=== PATIENT | male | born 1980 | race Hispanic/Latino ===

== ENCOUNTER 2020-03-08 18:48 | Inpatient (IN) | payer OTHER ==
[~2020-03-08] VITALS: Ht 177.8 cm; Wt 104.3 kg
[2020-03-08] MEDS ORDERED: PANTOPRAZOLE 40 MG 10ML VIAL IV NR (18:58)
[2020-03-08] MEDS ORDERED: SODIUM CHLORIDE 0.9% 1000ML 1,000 ML IV STA (18:58)
[2020-03-08] MEDS ORDERED: MORPHINE SULFATE INJ 4 MG/ML INJ 1ML IV PRN (19:00)
[2020-03-08] MEDS ORDERED: ONDANSETRON HCL INJ 2MG/ML 2ML 2 MG/ML VIAL IV NR (19:00)
[2020-03-08] MEDS ORDERED: KETOROLAC TROMETHAMINE 30 MG/ML VIAL IV NR (19:00)
[2020-03-08] MEDS ORDERED: PIPER-TAZ 3.375 GM 50 ML IV NR (19:32)
[2020-03-08] MEDS ORDERED: ACETAMINOPHEN 325 MG TAB PO NR ×2 (19:45)
[2020-03-08 20:03] LABS: BASOPHILS % 0.2 % (0.0-1.0); EOSINOPHILS # (AUTO) 0.1 (0.0-0.4); EOSINOPHILS % 0.9 % (0.0-6.0); HEMOGLOBIN 14.3 g/dL (14.0-18.0); LYMPHOCYTES # (AUTO) 0.6 (1.0-3.2); LYMPHOCYTES % 4.2 % (18.0-39.1); MEAN CORPUSCULAR HEMOGLOBIN 28.9 pg (28-32); MONOCYTES # (AUTO) 1.1 (0.2-0.8); NEUTROPHILS # (AUTO) 11.6 (2.1-6.9); NEUTROPHILS % 86.1 % (38.7-80.0); PLATELET COUNT 317 x10e3/uL (140-360); RED BLOOD COUNT 4.94 x10e6/uL (4.3-5.7); RED CELL DISTRIBUTION WIDTH 12.1 % (11.7-14.4)
[2020-03-08 20:12] LABS: CLARITY,URINE SL CLOUDY (CLEAR); COLOR,URINE AMBER (YELLOW); KETONES,URINE 2+ (NEGATIVE); LEUKOCYTE ESTERASE ,URINE TRACE (NEGATIVE); NITRITE,URINE NEGATIVE (NEGATIVE); PROTEIN,URINE DIPSTICK 1+ (NEGATIVE)
[2020-03-08 20:13] LABS: AMPHETAMINES SCREEN,URINE POSITIVE (NEGATIVE); BENZODIAZEPINES SCREEN,URINE NEGATIVE (NEGATIVE); BILIRUBIN,URINE 1+ (NEGATIVE); PHENCYCLIDINE SCREEN,URINE NEGATIVE (NEGATIVE); URINE UROBILINOGEN 0.2 mg/dL (0.2 - 1)
[2020-03-08 20:21] LABS: ALANINE AMINOTRANSFERASE 23 IU/L (0-55); ALBUMIN 3.3 g/dL (3.5-5.0); ALBUMIN/GLOBULIN RATIO 0.7 (0.8-2.0); ALKALINE PHOSPHATASE 77 IU/L (40-150); ANION GAP 18.9 mmol/L (8-16); BLOOD UREA NITROGEN 15 mg/dL (7-26); BUN/CREATININE RATIO 17 (6-25); CALCIUM 9.4 mg/dL (8.4-10.2); CARBON DIOXIDE 22 mmol/L (22-29); CHLORIDE 98 mmol/L (98-107); CREATINE KINASE 61 IU/L (30-200); CREATININE, SERUM 0.89 mg/dL (0.72-1.25); EST GLOMERULAR FILTRATION RATE > 60 ML/MIN (60-); GLUCOSE 140 mg/dL (74-118); POTASSIUM 3.9 mmol/L (3.5-5.1); SODIUM 135 mmol/L (136-145)
[2020-03-08 20:25] LABS: BACTERIA,URINE MODERATE /HPF; CALCIUM OXALATE CRYSTALS,UR MODERATE (FEW); EPITHELIAL CELLS,URINE FEW /LPF; MUCUS,URINE FEW (RARE)
[2020-03-08] MEDS ORDERED: SODIUM CHLORIDE 0.9% 50ML 50 ML ONE (20:39)
[2020-03-08] MEDS ORDERED: IOPAMIDOL 370 MG/ML 200 ML INFUS..BTL INJ ONE (20:40)
--- NOTE | 2020-03-08 20:43 | Emergency Department Note ---
History of Present Illnes History of Present Illness Chief Complaint: Abdominal Complaints History of Present Illness This is a 39 year old male arrives to the ED with complaints of abdominal pain, patient states he was told he had diverticulitis by his primary care doctor and was started on Cipro Flagyl but his symptoms are worsening and he is now having fevers.. Historian: Patient Arrival Mode: Car Onset (how long ago): day(s) Radiation: Reports non-radiation Severity: mild, moderate Duration (how long): day(s) Timing of current episode: constant Progression: worsening Chronicity: new Relieving factors: none Past Medical/Family History Physician Review I have reviewed the patient's past medical and family history. Any updates have been documented here. Past Medical History Recent Fever: Yes Clinical Suspicion of Infectio: Yes New/Unexplained Change in Ment: No Past Medical History: Hypertension, Hyperlipedemia Past Surgical History: None Social History Smoking Cessation: Current every day smoker Counseling Performed: Yes Alcohol Use: Occasional Any Illegal Drug Use: No Physically hurt or threatened: No Review of Systems Review of Systems Constitutional: Reports no symptoms, Reports as per HPI, Reports fever, Reports malaise, Reports weakness EENTM: Reports no symptoms Cardiovascular: Reports no symptoms Respiratory: Reports no symptoms Gastrointestinal: Reports as per HPI, Reports abdominal pain Genitourinary: Reports no symptoms Musculoskeletal: Reports no symptoms Integumentary: Reports no symptoms Neurological: Reports no symptoms Psychological: Reports no symptoms Endocrine: Reports no symptoms Hematological/Lymphatic: Reports no symptoms Physical Exam Related Data Allergies: Coded Allergies: No Known Allergies (Unverified , 03/08/20) Triage Vital Signs Vital Signs Date Time Temp Pulse Resp B/P (MAP) Pulse Ox O2 Delivery O2 Flow Rate FiO2 03/08/20 19:33 103.1 116 17 162/104 100 Room Air Vital signs reviewed: Yes Physical Exam CONSTITUTIONAL Constitutional: Present well-developed, Present well-nourished HENT HENT: Present normocephalic, Present atraumatic, Present oropharynx clear/moist, Present nose normal HENT L/R: Present left ext ear normal, Present right ext ear normal EYES Eyes: Reports PERRL, Reports conjunctivae normal NECK Neck: Present ROM normal PULMONARY Pulmonary: Present effort normal, Present breath sounds normal CARDIOVASCULAR Cardiovascular: Present heart sounds normal, Present capillary refill normal, Present normal rate, Present tachycardia GASTROINTESTINAL Abdominal: Present soft, Present bowel sounds normal, Present distension, Present tender GENITOURINARY Genitourinary: Present exam deferred SKIN Skin: Present warm, Present dry MUSCULOSKELETAL Musculoskeletal: Present ROM normal NEUROLOGICAL Neurological: Present alert, Present oriented x 3, Present no gross motor or sensory deficits PSYCHOLOGICAL Psychological: Present mood/affect normal, Present judgement normal Results Laboratory Result Diagram: 03/08/20192403/08/201924 Laboratory Laboratory Tests Test 03/08/20 20:02 03/08/20 19:25 White Blood Count 13.51 x10e3/uL (4.8-10.8) Red Blood Count 4.94 x10e6/uL (4.3-5.7) Hemoglobin 14.3 g/dL (14.0-18.0) Hematocrit 42.0 % (38.2-49.6) Mean Corpuscular Volume 85.0 fL (81-99) Mean Corpuscular Hemoglobin 28.9 pg (28-32) Mean Corpuscular Hemoglobin Concent 34.0 g/dL (31-35) Red Cell Distribution Width 12.1 % (11.7-14.4) Platelet Count 317 x10e3/uL (140-360) Neutrophils (%) (Auto) 86.1 % (38.7-80.0) Lymphocytes (%) (Auto) 4.2 % (18.0-39.1) Monocytes (%) (Auto) 8.0 % (4.4-11.3) Eosinophils (%) (Auto) 0.9 % (0.0-6.0) Basophils (%) (Auto) 0.2 % (0.0-1.0) Neutrophils # (Auto) 11.6 (2.1-6.9) Lymphocytes # (Auto) 0.6 (1.0-3.2) Monocytes # (Auto) 1.1 (0.2-0.8) Eosinophils # (Auto) 0.1 (0.0-0.4) Basophils # (Auto) 0.0 (0.0-0.1) Absolute Immature Granulocyte (auto 0.08 x10e3/uL (0-0.1) Urine Color Clara (YELLOW) Urine Clarity Sl cloudy (CLEAR) Urine pH 5.5 (5 - 7) Urine Specific [place] >=1.030 (1.010-1.025) Urine Protein 1+ (NEGATIVE) Urine Glucose (UA) Negative (NEGATIVE) Urine Ketones 2+ (NEGATIVE) Urine Blood Trace (NEGATIVE) Urine Nitrite Negative (NEGATIVE) Urine Bilirubin 1+ (NEGATIVE) Urine Urobilinogen 0.2 mg/dL (0.2 - 1) Urine Leukocyte Esterase Trace (NEGATIVE) Urine RBC 6-10 /HPF (0-5) Urine WBC 6-10 /HPF (0-5) Urine Epithelial Cells Few /LPF (NONE) Urine Calcium Oxalate Crystals Moderate (FEW) Urine Bacteria Moderate /HPF (NONE) Urine Fine Granular Casts 1-5 (0) Urine Coarse Granular Casts 1-5 (0) Urine Mucus Few (RARE) Sodium Level 135 mmol/L (136-145) Potassium Level 3.9 mmol/L (3.5-5.1) Chloride Level 98 mmol/L (98-107) Carbon Dioxide Level 22 mmol/L (22-29) Anion Gap 18.9 mmol/L (8-16) Blood Urea Nitrogen 15 mg/dL (7-26) Creatinine 0.89 mg/dL (0.72-1.25) Estimat Glomerular Filtration Rate > 60 ML/MIN (60-) BUN/Creatinine Ratio 17 (6-25) Glucose Level 140 mg/dL (74-118) Lactic Acid Level 1.6 mmol/L (0.5-2.0) Calcium Level 9.4 mg/dL (8.4-10.2) Total Bilirubin 0.7 mg/dL (0.2-1.2) Aspartate Amino Transf (AST/SGOT) 19 IU/L (5-34) Alanine Aminotransferase (ALT/SGPT) 23 IU/L (0-55) Alkaline Phosphatase 77 IU/L (40-150) Creatine Kinase 61 IU/L (30-200) Creatine Kinase MB 0.60 ng/mL (0-5.0) Troponin I < 0.001 ng/mL (0-0.300) Total Protein 7.8 g/dL (6.5-8.1) Albumin 3.3 g/dL (3.5-5.0) Globulin 4.5 g/dL (2.3-3.5) Albumin/Globulin Ratio 0.7 (0.8-2.0) Lipase 16 U/L (8-78) Urine Opiates Screen Negative (NEGATIVE) Urine Methadone Screen Negative (NEGATIVE) Urine Barbiturates Screen Negative (NEGATIVE) Urine Phencyclidine Screen Negative (NEGATIVE) Urine Amphetamines Screen Positive (NEGATIVE) Urine Methamphetamines Screen Negative (NEGATIVE) Urine Benzodiazepines Screen Negative (NEGATIVE) Urine Cocaine Screen Negative (NEGATIVE) Urine Cannabinoids Screen Negative (NEGATIVE) Imaging Imaging results reviewed: Yes Impressions IMPRESSION: Perforated sigmoid diverticulitis with small volume pneumoperitoneum and an 8.3 cm air-fluid containing lower mesenteric abscess. This was discussed with Dr. Mcdonough by Dr. Ayers at 9:47 PM on 03/08/2020 via telephone. Eventually colonoscopy will be necessary to exclude underlying malignancy given the presence of sigmoid wall thickening.. Hepatic steatosis. Suspect gallbladder sludge. Signed by: Elliot Ayers DO on 03/08/2020 9:52 PM Assessment & Plan Medical Decision Making MDM 39-year-old male arrives to the ED with fever abdominal pain. Concerns of severe sepsis noted at 2150 Lactic acid 1.6 ni indications for repeat Patient empirically covered with Zosyn the setting of possible intra-abdominal infection. Blood cultures and lactic acid drawn. CT findings concerning for intra-abdominal perforated abscess of pneumoperitoneum. Patient kept nothing by mouth, further antibiotics added at recommendation of general surgeon. Dr. Senior informed and patient admitted to IMCU for closer monitoring. Patient is hemodynamically stable at time of admi ssion requires no pressor support. Patient continued on maintenance fluids with further interventions to be completed by general surgery. Assessment & Plan Final Impression: (1) Pneumoperitoneum (2) Perforation and abscess of large intestine concurrent with and due to diverticulitis Depart Disposition: ADMITTED Last Vital Signs Date Time Temp Pulse Resp B/P (MAP) Pulse Ox O2 Delivery O2 Flow Rate FiO2 03/08/20 19:59 102 24 153/102 99 Room Air 03/08/20 19:33 103.1 Medications in the ED Sodium Chloride 1,000 ml @ 0 mls/hr Q0M STAT IV Last administered on 03/08/20at 19:58; Admin Dose 999 MLS/HR; Start 03/08/20 at 18:58; Stop 03/08/20 at 18:59 Pantoprazole Sodium 40 mg NOW IV Last administered on 03/08/20at 19:58; Admin Dose 40 MG; Start 03/08/20 at 18:58; Stop 8/23/20 at 20:00 Morphine Sulfate 4 mg ONCE PRN IV SEVERE PAIN (7-10) Last administered on 03/08/20at 19:58; Admin Dose 4 MG; Start 03/08/20 at 19:00; Stop 03/15/20 at 18:59 Ondansetron HCl 4 mg NOW IV Last administered on 03/08/20at 19:58; Admin Dose 4 MG; Start 03/08/20 at 19:00; Stop 03/08/20 at 20:59 Ketorolac Tromethamine 30 mg ONCE IV Last administered on 03/08/20at 19:58; Admin Dose 30 MG; Start 03/08/20 at 19:00; Stop 03/08/20 at 20:59 Acetaminophen 650 mg ONCE PO ; Start 03/08/20 at 19:45; Stop 03/08/20 at 19:40; Status DC Piperacillin Sod/ Tazobactam Sod 50 ml @ 50 mls/hr NOW IV Last administered on 03/08/20at 19:58; Admin Dose 50 MLS/HR; Start 03/08/20 at 19:32; Stop 03/08/20 at 20:59 Acetaminophen 975 mg ONCE PO Last administered on 03/08/20at 19:58; Admin Dose 975 MG; Start 03/08/20 at 19:45; Stop 03/08/20 at 20:59 Sodium Chloride 50 ml @ ud STK-MED ONCE .ROUTE ; Start 03/08/20 at 20:39; Stop 03/08/20 at 20:33; Status DC Iopamidol 74,000 mg STK-MED ONCE INJ ; Start 03/08/20 at 20:40; Stop 03/08/20 at 20:33; Status DC CONSUELO MCDONOUGH, Mar 08, 2020 20:44
--- NOTE | 2020-03-08 21:55 | Diagnostic Imaging Report ---
EXAM: CT Abdomen and Pelvis WITH contrast INDICATION: Diarrhea, abdominal pain, fever COMPARISON: None. TECHNIQUE: Abdomen and pelvis were scanned utilizing a multidetector helical scanner from the lung base to the pubic symphysis after administration of IV contrast. Coronal and sagittal reformations were obtained. Routine protocol was performed. Scan was performed when during portal venous phase. IV CONTRAST: 100 mL of Isovue 370 ORAL CONTRAST: None COMPLICATIONS: None RADIATION DOSE: Total DLP: 736 mGy*cm Estimated effective dose: (DLP x 0.015 x size factor) mSv CTDIvol has been reviewed. It is below the limits set by the Radiation Protocol Committee (RPC). Dose modulation, iterative reconstruction, and/or weight based adjustment of the mA/kV was utilized to reduce the radiation dose to as low as reasonably achievable. FINDINGS: LINES and TUBES: None. LOWER THORAX: Unremarkable HEPATOBILIARY: Hypodense liver. No focal hepatic lesions. No biliary ductal dilation. GALLBLADDER: Slightly hyperdense layering in the gallbladder fundus.. No wall thickening. SPLEEN: No splenomegaly. PANCREAS: No focal masses or ductal dilatation. ADRENALS: No adrenal nodules KIDNEYS/URETERS: Kidneys enhance symmetrically. No hydronephrosis. No cystic or solid mass lesions. No stones. GI TRACT: Sigmoid colonic wall thickening and perisigmoid fat stranding, and the presence of numerous diverticuli. Colonic diverticulosis, worst in the sigmoid colon. Normal appendix. No evidence of obstruction. PELVIC ORGANS/BLADDER: Unremarkable. LYMPH NODES: No lymphadenopathy. VESSELS: Unremarkable. PERITONEUM / RETROPERITONEUM: Trace pneumoperitoneum An 8.3 cm irregular air and fluid containing loculation within the distal mesentery beneath small bowel loops extends from the distal sigmoid colon. No free air or fluid. BONES: Unremarkable. SOFT TISSUES: Unremarkable. IMPRESSION: Perforated sigmoid diverticulitis with small volume pneumoperitoneum and an 8.3 cm air-fluid containing lower mesenteric abscess. This was discussed with Dr. Michaud by Dr. Ayers at 9:47 PM on 03/08/2020 via telephone. Eventually colonoscopy will be necessary to exclude underlying malignancy given the presence of sigmoid wall thickening.. Hepatic steatosis. Suspect gallbladder sludge. Signed by: Elliot Ayers DO on 03/08/2020 9:52 PM
[2020-03-08] MEDS ORDERED: LEVOFLOXACIN 500MG/D5W 100ML 100 ML IV STA (22:16)
[2020-03-08] MEDS ORDERED: METRONIDAZOLE 500MG/NS 100ML 100 ML IV STA (22:16)
[2020-03-08] MEDS ORDERED: CEFTRIAXONE SOD 2 GM/NS 100 ML 100 ML IV SCH (22:30)
[2020-03-08] MEDS ORDERED: ONDANSETRON HCL INJ 2MG/ML 2ML 2 MG/ML VIAL IV PRN (22:30)
[2020-03-08] MEDS ORDERED: MORPHINE SULFATE 2 MG/ML SYR 1ML IV PRN (22:30)
[2020-03-08] MEDS ORDERED: HYDROMORPHONE 1MG/1ML INJ IV PRN (22:30)
[2020-03-08] MEDS ORDERED: D5.45%NS/KCL 20MEQ 1,000 ML IV ONE (22:30)
--- OUTSIDE RECORDS SUMMARY | 2020-03-08 22:31 | XMS REPORT | Continuity of Care Document ---
Author Author [facility] t Organization [facility] Address [address] [place] [address] Dr. Suarez [address] [place] [id number] Phone Unavailable Care Team Providers Care Call Center Receptionist Name Role Phone Sridevi MCDONOUGH Attphysridevi Unavailable Problems This patient has no known problems. Allergies, Adverse Reactions, Alerts This patient has no known allergies or adverse reactions. Medications This patient has no known medications. Procedures This patient has no known procedures. Results Test Description Test Time Test Comments Results Result Comments Source CT ABDOMEN/PELVIS W 2020-03-08 21:44:00 [place] [address] Patient Name: DORI CABEZAS MR #: [id number] : 1980 Age/Sex: 39/M Req #: [id number] Adm Physician: Ordered by: CONSUELO MCDONOUGH DO Report #: [id number] Location: ER Room/Bed: Procedure: [id number] CT/CT ABDOMEN/PELVIS W Exam Date: Exam Time: REPORT STATUS: Signed EXAM: CT Abdomen and Pelvis WITH contrast INDICATION: Diarrhea, abdominal pain, fever COMPARISON: None. TECHNIQUE: Abdomen and pelvis were scanned utilizing a multidetector helical scanner from the lung base to the pubic symphysis after administration of IV contrast. Coronal and sagittal reformations were obtained. Routine protocol was performed. Scan was performed when during portal venous phase. IV CONTRAST: 100 mL of Isovue 370 ORAL CONTRAST: None COMPLICATIONS: None RADIATION DOSE: Total DLP: 736 mGy*cm Estimated effective dose: (DLP x 0.015 x size factor) mSv CTDIvol has b een reviewed. It is below the limits set by the Radiation Protocol Committee (RPC). Dose modulation, iterative reconstruction, and/or weight based adjustment of the mA/kV was utilized to reduce the radiation dose to as low as reasonably achievable. FINDINGS: LINES and TUBES: None. LOWER THORAX: Unremarkable HEPATOBILIARY: Hypodense liver. No focal hepatic lesions. No biliary ductal dilation. GALLBLADDER: Slightly hyperdense layering in the gallbladder fundus.. No wall thickening. SPLEEN: No splenomegaly. PANCREAS: No focal masses or ductal dilatation. ADRENALS: No adrenal nodules KIDNEYS/URETERS: Kidneys enhance symmetrically. No hydronephrosis. No cystic or solid mass lesions. No stones. GI TRACT: Sigmoid colonic wall thickening and perisigmoid fat stranding, and the presence of numerous diverticuli. Colonic diverticulosis, worst in the sigmoid colon. Normal appendix. No evidence of obstruction. PELVIC ORGANS/BLADDER: Unremarkable. LYMPH NODES: No lymphadenopathy. VESSELS: Unremarkable. PERITONEUM / RETROPERITONEUM: Trace pneumoperitoneum An 8.3 cm irregular air and fluid containing loculation within the distal mesentery beneath small bowel loops extends from the distal sigmoid colon. No free air or fluid. BONES: Unremarkable. SOFT TISSUES: Unremarkable. IMPRESSION: Perforated sigmoid diverticulitis with small volume pneumoperitoneum and an 8.3 cm air-fluid containing lower mesenteric abscess. This was discussed with Dr. Mcdonough by Dr. Ayers at 9:47 PM on 03/08/2020 via telephone. Eventually colonoscopy will be necessary to exclude underlying malignancy given the presence of sigmoid wall thickening.. Hepatic steatosis. Suspect gallbladder sludge. Signed by: Elliot Ayers DO on 03/08/2020 9:52 PM Dictated By: ELLIOT AYERS DO 49 Transcribed By: ZAYRA on 03/08/202151 COPY TO: CONSUELO MCDONOUGH DO
[2020-03-08] MEDS ORDERED: PANTOPRAZOLE 40 MG 10ML VIAL IV SCH (22:45)
[2020-03-08] MEDS ORDERED: SODIUM CHLORIDE 0.9% 1000ML 1,000 ML ONE (23:02)
[2020-03-08] MEDS: SODIUM CHLORIDE 0.9% 1000ML 1,000 ML IV SCH (23:11)
[2020-03-09] VITALS (7 sets, daily range): BP systolic 122–146; BP diastolic 70–98
--- NOTE | 2020-03-09 00:10 | NUR ---
PT ARRIVED ON THE FLOOR VIA STRETCHER FROM ER, REPORT RECEIVED, PT ALERT AND ORIENTED, PT SPEAKS KITTITIAN BUT UNDERSTANDS MOST UZBEK, IV INTACT TO RIGHT AC, 20 G, TELE AT BEDSIDE, NO PAIN NOTED OR DISTRESS AT THIS TIME. ORIENTED TO ROOM AND CALL SYSTEM.
[2020-03-09] MEDS ORDERED: HYDRALAZINE HCL 20 MG/ML VIAL IV PRN (00:30)
[2020-03-09] MEDS ORDERED: HYDROMORPHONE 1MG/1ML INJ IV PRN (00:30)
[2020-03-09] MEDS ORDERED: ACETAMINOPHEN 650 MG SUPP PR PRN (00:30)
[2020-03-09] MEDS ORDERED: MELATONIN 5 MG TABLET PO PRN (00:30)
[2020-03-09] MEDS ORDERED: CEFTRIAXONE SOD 1 GM VIAL ONE (02:24)
--- NOTE | 2020-03-09 04:00 | NUR ---
VS WNL, PT IN BED, EASILY AWAKENED, NO DISTRESS NOTED, CALL LIGHT IN REACH, WILL CONTINUE TO MONITOR.
[2020-03-09] MEDS: SODIUM CHLORIDE 0.9% 1000ML 1,000 ML IV SCH ×3 (05:25→19:52)
[2020-03-09 06:10] LABS: BASOPHILS % 0.2 % (0.0-1.0); EOSINOPHILS % 0.2 % (0.0-6.0); HEMATOCRIT 35.3 % (38.2-49.6); HEMOGLOBIN 11.7 g/dL (14.0-18.0); LYMPHOCYTES # (AUTO) 1.3 (1.0-3.2); LYMPHOCYTES % 10.8 % (18.0-39.1); MEAN CORPUSCULAR HEMOGLOBIN 28.5 pg (28-32); MEAN CORPUSCULAR HGB CONC 33.1 g/dL (31-35); MEAN CORPUSCULAR VOLUME 86.1 fL (81-99); MONOCYTES # (AUTO) 1.1 (0.2-0.8); MONOCYTES % 9.2 % (4.4-11.3); NEUTROPHILS # (AUTO) 9.5 (2.1-6.9); PLATELET COUNT 235 x10e3/uL (140-360); RED CELL DISTRIBUTION WIDTH 12.1 % (11.7-14.4)
[2020-03-09 06:29] LABS: BLOOD UREA NITROGEN 13 mg/dL (7-26); BUN/CREATININE RATIO 16 (6-25); CALCIUM 8.1 mg/dL (8.4-10.2); CARBON DIOXIDE 23 mmol/L (22-29); CHLORIDE 104 mmol/L (98-107); CREATININE, SERUM 0.79 mg/dL (0.72-1.25); EST GLOMERULAR FILTRATION RATE > 60 ML/MIN (60-); GLUCOSE 126 mg/dL (74-118); SODIUM 136 mmol/L (136-145)
[2020-03-09] MEDS ORDERED: METRONIDAZOLE 500MG/NS 100ML 100 ML IV ONE (10:20)
[2020-03-09] MEDS ORDERED: PIPER-TAZ 3.375 GM 50 ML ONE (10:21)
--- NOTE | 2020-03-09 10:37 | Consultation ---
DATE OF CONSULTATION: 03/09/2020 REASON FOR CONSULTATION: Perforated diverticulitis. HISTORY OF PRESENT ILLNESS: The patient is a very pleasant 39-year-old male who has a long-standing history of recurrent attacks of diverticulitis, multiple, none of which have required hospitalization. The patient developed since Monday lower left-sided abdominal pain which progressively got worse until yesterday at which time he could not tolerate any longer the pain, reason for which he came to the emergency room. In the emergency room, the patient underwent a CT scan of the abdomen and pelvis that revealed perforated diverticulitis with a mesenteric interloop type of fluid collection and multiple pockets of free air. The patient's white count is 16 ,000 , Vital signs are stable PAST MEDICAL HISTORY: Significant for hypertension and high cholesterol. PREVIOUS SURGERIES: Include traumatic injury to the left index finger with repair. ALLERGIES: HE HAS NO KNOWN ALLERGIES. SOCIAL HISTORY: He smokes three cigars a day, but does not drink at to any excess. 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 FAMILY HISTORY : nON CONTIB UTORY REVIEW OF SYSTEMS: Significant for what has already been stated. PHYSICAL EXAMINATION: GENERAL: Reveals a 39-year-old male who complains of abdominal pain. At this point, he is afebrile with stable vital signs. HEAD, EAR, NOSE, and THROAT: Unremarkable. LUNGS: Clear. HEART: Reveals regular sinus rhythm. ABDOMEN: Reveals diffuse tenderness with rebound on deep palpation. The tenderness is more shiv in the left lower quadrant. EXTREMITIES: Reveal no clubbing, cyanosis, or edema. LABORATORY DATA: Labs have been discussed. Normal electrolytes. CT scan has already been discussed. ASSESSMENT/PLAN: Perforated diverticulitis with peritonitis, multiple small pockets of free air. He has had previous attacks in the past. The plan is to proceed with emergent exploratory laparotomy and colostomy. He understands the reasons for the surgery. The potential risks and benefits have been discussed. He agrees to colostomy placement and he understands that the colostomy can be closed later on. All questions have been asked in great detail. MD VANNESA Hernandez/NIKHIL /[id number] TAB
[2020-03-09] MEDS ORDERED: HYDROMORPHONE 2MG/ML 2 MG/ML ML ONE (12:56)
[2020-03-09] MEDS ORDERED: HYDROGEN PEROXIDE 120 ML BTL ONE (14:07)
--- NOTE | 2020-03-09 14:28 | NUR ---
infectious disease consultation Patient seen and examined chart reviewed the events noted Reason for consultation is Perforated diverticulitis. HISTORY OF PRESENT ILLNESS: The patient is a very pleasant 39-year-old male who has a long-standing history of recurrent attacks of diverticulitis, multiple, none of which have required hospitalization. the patient comes in the hospital complaining of abdominal pain apparently it was started a few days ago The patient developed since Monday lower left-sided abdominal pain which progressively got worse until yesterday at which time he could not tolerate any longer the pain, reason for which he came to the emergency room. In the emergency room, the patient underwent a CT scan of the abdomen and pelvis that revealed perforated diverticulitis with a mesenteric interloop type of fluid collection and multiple pockets of free air including the abdominal wall. The patient's white count is 16,000. Vital signs are stable. Patient is being admitted surgery and consulted is going for surgery I was asked to see him to make a recommendation terms of antibiotic the patient is currently complaining of abdominal pain PAST MEDICAL HISTORY: Significant for hypertension and high cholesterol. PREVIOUS SURGERIES: Include traumatic injury to the left index finger with repair. ALLERGIES: HE HAS NO KNOWN ALLERGIES. SOCIAL HISTORY: He smokes three cigars a day, but does not drink at to any excess. 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 FAMILY HISTORY: noncontributory . REVIEW OF SYSTEMS: Significant for what has already been stated.otherwise 14 points within normal limit PHYSICAL EXAMINATION: GENERAL: Reveals a 39-year-old male who complains of abdominal pain. At this point, he is afebrile with stable vital signs. HEAD, EAR, NOSE, and THROAT: Unremarkable. normocephalic LUNGS: Clear. bilateral HEART: Reveals regular sinus rhythm. S1-S2 there is no S3-S4 or murmur ABDOMEN: Reveals diffuse tenderness with rebound on deep palpation. The tenderness is more shiv in the left lower quadrant. EXTREMITIES: Reveal no clubbing, cyanosis, or edema. neuro nonfocal LABORATORY DATA: Labs have been discussed. Normal electrolytes. CT scan has already been discussed. Peritonitis. Ruptured diverticular disease diverticulitis. Surgery is planned for him today agree with surgery recommendations Zosyn 3.375 IV every 8 recheck CBC restrictive panel
[2020-03-09] MEDS ORDERED: FENTANYL CITRATE/PF 100MCG/2 ML INJ ONE (15:22)
[2020-03-09] MEDS ORDERED: MIDAZOLAM HCL 2 MG/2 ML VIAL ONE (15:22)
[2020-03-09] MEDS: SODIUM CHLORIDE 0.9% 250ML IRRIG IR SCH ×3 (15:45→23:57)
[2020-03-09] MEDS ORDERED: NALOXONE HCL INJ 0.4 MG/ML AMP IV PRN (15:45)
[2020-03-09] MEDS: HYDROMORPHONE 0.2MG/ML-SOD CHL 30ML PCA SYRINGE IV PRN (16:05)
--- NOTE | 2020-03-09 17:00 | NUR ---
Received patient from PACU patient is awake alert and oriented x3, verbalizing needs, has NGT to left Nares, connected him to continuous low wall suction, placed on oxygen 3 liters nasal canula, has abdominal midline incision with foam dressing in place, right LOBO drain with sanguinous drainage, left LOBO drain sanguinous drainage. Geiger to gravity placed in the OR, instructed patient to use call light when needing assistance.
[2020-03-09] MEDS ORDERED: PIPER-TAZ 3.375 GM 50 ML IV SCH (18:00)
[2020-03-09] MEDS ORDERED: PROPOFOL IV EMULSION 10 MG/ML 20 ML VIAL ONE (18:20)
[2020-03-09] MEDS ORDERED: NEOSTIGMINE 1 MG/ML 10ML VIAL ONE (18:20)
[2020-03-09] MEDS ORDERED: ROCURONIUM BROMIDE 10 MG/ML 5ML VIAL IV ONE (18:20)
[2020-03-09] MEDS ORDERED: GLYCOPYRROLATE INJ 0.2 MG/ML VIAL ONE (18:20)
[2020-03-09] MEDS ORDERED: LIDOCAINE HCL 2% LOCAL INJ 5 ML SDV VIAL INJ ONE (18:20)
[2020-03-09] MEDS ORDERED: ONDANSETRON HCL INJ 2MG/ML 2ML 2 MG/ML VIAL ONE (18:20)
[2020-03-09] MEDS ORDERED: DEXAMETHASONE SOD PHOS INJ 4 MG/ML VIAL ONE (18:20)
[2020-03-09] MEDS ORDERED: SEVOFLURANE INHAL SOLN 250 ML PEN BTL ONE (18:20)
[2020-03-09] MEDS: METRONIDAZOLE 500MG/NS 100ML 100 ML IV SCH (18:35)
--- NOTE | 2020-03-09 19:26 | Operative Report ---
DATE OF PROCEDURE: SURGEON: Jose Senior MD The patient is a pleasant 39-year-old obese hypertension male, on amphetamine for weight loss, who presented with abdominal pain since the Monday prior to admission. The pain progressively got worse and he presented to [facility] on Monday night with progressive severe pain. In the emergency room, he underwent a CT scan of the abdomen that revealed multiple small pockets of air and ill-defined collection of fluid into the mesentery of the small bowel, all consistent with perforated diverticulitis. The patient was hydrated, given antibiotics, and taken to the operating room. INTRAOPERATIVE FINDINGS: The patient had a perforated sigmoid diverticulitis with generalized peritonitis, which was of the fecal type. There was fibrinous exudate throughout the small bowel and there was a distal sigmoid mass or phlegmon, which on intraoperative consultation was found to be perforated sigmoid diverticulitis rather than malignancy. Final path report is pending. There were significant inflammatory changes throughout the small bowel as previously stated with an edema of the small bowel mesentery and colon. The colon was very fatty. The actual lumen of the sigmoid colon selected for the colostomy was actually rather small compared to the amount of fat in the pericolonic plane. The intraoperative findings were precluded. Primary anastomosis and a Bakari's procedure were performed with resection of the sigmoid colon, leaving a stump that was located above the peritoneal reflection and left-sided end colostomy was then performed after mobilization of the colon. DESCRIPTION OF PROCEDURE: With the patient lying on the operating table in the supine position, after administration of general anesthesia, he was prepped and draped for exploratory laparotomy, Bakari's procedure, and anesthesia was made around the umbilicus curved to the right and the abdomen was entered. Edema was found of the subcutaneous tissue and preperitoneal fat. Upon entering the peritoneum, we heard a gush of air and then sickling pus was found. We copiously irrigated the wound at this point, extracting all of the tracheal pus and fluid and then we palpated the phlegmonous mass in the distal sigmoid colon above the peritoneal reflection. We then mobilized the left colon and sigmoid colon along the white line of Toldt and then selected the point of proximal transection in the distal left colon, the proximal point of transection of the sigmoid colon at the junction with the left colon, and then the distal point of transection was in the distal sigmoid colon above the peritoneal reflection below the mass effect the patient showed. We then took down the blood supply with a combination of the EnSeal hemostatic instrument and 0 silk for the major branches of the inferior mesenteric artery supplying the left colon and sigmoid colon. Hemostasis was absolute. After we detached the colon, we continued with the irrigation. We then ran the small bowel all the way from the terminal ileum to the ligament of Treitz and we did not find any evidence of perforation. There were interloop abscesses and pus and fibrinous exudate, all of that was removed. We then brought out the left colon as a colostomy through a colostomy site located along the rectus sheath and a cruciate incision was then made and enlarged to allow the passage of the colon. We found that the actual colon in that area had a small lumen and had significant fat. We went ahead and at this point after exteriorizing the left colon, then started closing the wound. The instrument and sponge counts were pronounced correct. We went ahead and then closed the abdominal wound with a running #1 Vicryl for the peritoneum and posterior sheath and running #1 PDS for the anterior fascia. We placed a 10 mm flat Wilner-North drain to drain the pelvis and brought it out through a stab wound inferior to the incision along the midline and secured it there with 3-0 silk. The subcutaneous tissue was copiously irrigated in each layer and then we closed the subcutaneous tissues with interrupted 2-0 chromic and the skin was closed with a combination of 2-0 silk and radha and then we isolated the incision and then the colostomy was matured by placing 4 quadrant stitches with 3-0 Vicryl in mucosa, serosa and the subcuticular plane. We had to place a couple of stitches using silk 2-0 on the medial and lateral aspects of the colostomy site because the actual colonic lumen was smaller down the excise patch of skin and I did not want to create undue tension and after we did that, we were able then to secure the 4 quadrant anchoring stitches without any excess tension on the colonic lumen. We then completed the maturation of the stoma with interrupted 3-0 Vicryl stitches incorporating the mucosa and the subcuticular plane. At this point, we then applied a 3/4 inches colostomy sterile appliance to appropriate size and connected to the wafer to the back. The patient tolerated the procedure well and was taken back to [facility] because there was no ICU available at this point, even though I requested 1, but it was not done because the ICU was full due to the COVID situation. At the end of the procedure, I informed the patient's of the intraoperative findings and she is fully aware that this is a very serious condition due to the fecal load perforation and all questions were answered. MD VANNESA Hernandez/NIKHIL /[id number]
[2020-03-09] MEDS: PIPER-TAZ 3.375 GM 50 ML IV SCH (19:52)
[2020-03-09] MEDS: PANTOPRAZOLE 40 MG 10ML VIAL IV SCH (19:52)
[2020-03-09] MEDS: KETOROLAC TROMETHAMINE 30 MG/ML VIAL IM PRN (20:09)
[2020-03-09] MEDS ORDERED: CEFTRIAXONE SOD 2 GM/NS 100 ML 100 ML IV SCH (22:30)
[2020-03-10] VITALS (8 sets, daily range): BP systolic 114–153; BP diastolic 70–86
[2020-03-10] MEDS ORDERED: ACETAMINOPHEN 1000 MG/100 ML IV PRN
[2020-03-10] MEDS: HYDROMORPHONE 0.2MG/ML-SOD CHL 30ML PCA SYRINGE IV PRN ×2 (00:19→19:12)
[2020-03-10] MEDS: METRONIDAZOLE 500MG/NS 100ML 100 ML IV SCH ×4 (00:28→18:11)
[2020-03-10] MEDS: PIPER-TAZ 3.375 GM 50 ML IV SCH ×2 (02:50→08:44)
[2020-03-10] MEDS: KETOROLAC TROMETHAMINE 30 MG/ML VIAL IM PRN (02:54)
[2020-03-10] MEDS: SODIUM CHLORIDE 0.9% 250ML IRRIG IR SCH ×6 (03:49→23:59)
--- NOTE | 2020-03-10 03:57 | Operative Report ---
DATE OF PROCEDURE: 03/09/2020 SURGEON: Jose Senior MD PREOPERATIVE DIAGNOSES: Perforated sigmoid diverticulitis with pneumoperitoneum and peritonitis, obesity, hypertension. POSTOPERATIVE DIAGNOSES: Perforated sigmoid diverticulitis with fecal peritonitis, obesity, hypertension. PROCEDURES PERFORMED: Exploratory laparotomy with peritoneal irrigation, sigmoid colon resection, and left colostomy. MARKET RESEARCH COORDINATOR: Freeman López. ESTIMATED BLOOD LOSS: Less than 250 mL. COMPLICATIONS: None. INDICATION AND FINDINGS: The patient is a pleasant 39-year-old hypertensive, obese male, admitted to the hospital with a history of a recurrent episode and bout of diverticulitis in the past. The patient started having severe pain and last Monday he got progressively worse to the point where he came to [facility]. In the emergency room, the patient was found to be febrile. Vital signs were stable. There was no hypotension. His lactic acid was 1.6, which is normal. The patient underwent CT scan of the abdomen, that revealed perforation with small pockets of air throughout the abdominal cavity. There was an ill-defined collection in the mesentery of the small bowel. Physical examination revealed diffuse tenderness mainly in the left lower quadrant with deep rebound. The patient was given intravenous antibiotics and hydrated, and then taken to the operating room for laparotomy. DICTATION ENDS HERE Jose Senior MD PJR/MODL /[id number]
--- NOTE | 2020-03-10 03:57 | History and Physical ---
CHIEF COMPLAINT: Abdominal pain. HISTORY OF PRESENT ILLNESS: A 39-year-old male with known history of diverticulitis, comes into the ED with complaints of diffuse abdominal pain that began since Monday last week. The patient reports that he was diagnosed with diverticulitis approximately 10 to 12 years ago. He has been on and off with pain. He reports having colonoscopy many years ago and told him about this diagnosis. He used to take antibiotics with much improvement. Last week, he noted to have an acute abdominal pain, radiated to more toward the left lower quadrant and then started diffusely given severe pain. He has been having just clear liquid diet at home, but no fever. Due to excruciating pain, he came into the ED for further evaluation and management. CT imaging was consistent with a perforated sigmoid diverticulitis with a pneumoperitoneum with air containing lower mesenteric abscess seen. The patient was taken to the OR by Dr. Senior and had extensive surgery. The patient is seen for followup where he is currently doing well with no issues at this time. REVIEW OF SYSTEMS: Pertinent positives; abdominal pain, nausea, decreased oral intake, vomiting. The rest of 14-point review of systems have been reviewed with the patient and are negative. ALLERGIES: NO KNOWN DRUG ALLERGIES. HOME MEDICATIONS: None. PAST MEDICAL HISTORY: Diverticulitis. PAST SURGICAL HISTORY: He reports none. FAMILY HISTORY: None. SOCIAL HISTORY: No drugs. No alcohol. He does not smoke. He is . Good social support. PHYSICAL EXAMINATION: VITAL SIGNS: Temperature is 98.7, pulse 79, respiratory rate is 12, blood pressure 120/93, pulse ox 99% on 2 L nasal cannula. GENERAL: No acute distress. Alert and oriented x3. Cooperative on examination. HEENT: Head is normocephalic, atraumatic. Eyes, pupils are equal, round, reactive to light bilaterally. Extraocular movements are intact bilaterally. Throat, no evidence of erythema or exudates in the posterior pharynx. Has poor dentition. NECK: Supple. Good range of motion. PULMONARY: Clear to auscultation bilaterally. No wheezing, no rales, no rhonchi, no crackles appreciated. CARDIOVASCULAR: Positive S1 and S2. No murmurs, rubs, or gallops appreciated. ABDOMEN: Soft, nondistended, and nontender to palpation. Bowel sounds present. MUSCULOSKELETAL: Strength is 5/5 throughout. No evidence of any muscle deficits on examination. No weakness appreciated. NEUROLOGICAL: Cranial nerves II through XII grossly intact. No evidence of any neurological deficits on exam. SKIN: Intact. Warm to touch. Good cap refill. PSYCHIATRIC: Normal affect and mood. EXTREMITIES: No edema. Good range of motion throughout. LABORATORY DATA: Show white count was 12, hemoglobin 11, hematocrit 35, and platelets of 235. Chemistry; sodium 136, potassium 4, chloride 104, bicarb 23, anion gap of 13, BUN is 13, creatinine is 0.79, glucose is 126, calcium is 8.1. Lactic acid is 0.9. LFTs within normal range. Troponins are negative. Albumin 3.3. Lipase is 16. Urinalysis noted. Urine drug screen shows positive for amphetamine. Serology; coronavirus is pending. MICROBIOLOGY: Blood cultures, no growth. Urine culture is pending. IMAGING STUDIES: CT abdomen and pelvis shows a perforated sigmoid diverticulitis with small volume hemoperitoneum with 8.37 air fluid containing . There was also some thickening of the sigmoid wall. Hepatic steatosis suspected, gallbladder sludge. IMPRESSION: 1. Perforated diverticulitis with peritonitis with underlying abscess. 2. History of diverticulitis. PLAN: At this time, the patient underwent surgery performed by Dr. Senior. with a left-sided end colostomy created. Blood cultures were collected. The patient is on broad-spectrum IV antibiotic therapy. ID is following him as well as General Surgery. Now has an NG tube intermittent wall suctioning. He is on EQUIPMENT LEAD pump for pain. He is currently n.p.o. We will initiate anticoagulation tomorrow if agreed upon by General Surgery. Initiate IV TPN tomorrow for nutrition. Discussed plan of care with nursing staff and the patient at bedside. Continue with normal saline and IV fluid hydration for now. Consultants; General Surgery and ID. MD REEMA Cantu/MODL /[id number]
[2020-03-10 04:40] LABS: BASOPHILS % 0.2 % (0.0-1.0); EOSINOPHILS % 0.1 % (0.0-6.0); HEMATOCRIT 34.2 % (38.2-49.6); HEMOGLOBIN 11.2 g/dL (14.0-18.0); LYMPHOCYTES # (AUTO) 0.9 (1.0-3.2); LYMPHOCYTES % 8.2 % (18.0-39.1); MEAN CORPUSCULAR HEMOGLOBIN 29.2 pg (28-32); MEAN CORPUSCULAR HGB CONC 32.7 g/dL (31-35); MEAN CORPUSCULAR VOLUME 89.1 fL (81-99); MONOCYTES # (AUTO) 1.1 (0.2-0.8); MONOCYTES % 10.1 % (4.4-11.3); NEUTROPHILS # (AUTO) 9.1 (2.1-6.9); NEUTROPHILS % 80.3 % (38.7-80.0); PLATELET COUNT 271 x10e3/uL (140-360); RED BLOOD COUNT 3.84 x10e6/uL (4.3-5.7); RED CELL DISTRIBUTION WIDTH 12.5 % (11.7-14.4)
[2020-03-10 05:06] LABS: ALANINE AMINOTRANSFERASE 22 IU/L (0-55); ALBUMIN/GLOBULIN RATIO 0.6 (0.8-2.0); ALKALINE PHOSPHATASE 48 IU/L (40-150); ANION GAP 13.8 mmol/L (8-16); BLOOD UREA NITROGEN 12 mg/dL (7-26); BUN/CREATININE RATIO 15 (6-25); CALCIUM 7.6 mg/dL (8.4-10.2); CARBON DIOXIDE 21 mmol/L (22-29); CHLORIDE 107 mmol/L (98-107); EST GLOMERULAR FILTRATION RATE > 60 ML/MIN (60-); GLUCOSE 148 mg/dL (74-118); POTASSIUM 3.8 mmol/L (3.5-5.1); SODIUM 138 mmol/L (136-145)
[2020-03-10] MEDS: SODIUM CHLORIDE 0.9% 1000ML 1,000 ML IV SCH ×3 (06:31→14:38)
--- NOTE | 2020-03-10 13:15 | NUR ---
infectious disease progress note March 10, 2020 Patient seen and examined chart reviewed and discussed with surgery discussed the medical team prepared the patient is feeling better he had surgery yesterday he is still having some abdominal pain prepared for his review of system otherwise suggest week his physical examination currently alert oriented vital stable currently afebrile HEENT normocephalic neck supple chest clear anteriorly heart S1-S2 abdomen soft bowel sounds are present extremities no edema skin no rash. Impression sepsis on admission peritonitis on admission perforated colon on admission obesity will put the patient on cefepime 2 g every 6 Flagyl 500 IV every 6 discontinued Zosyn and discontinue Rocephin continued IV fluid continue supportive care will follow
--- NOTE | 2020-03-10 13:15 | NUR ---
addendum to the infectious disease consultation from March 09, 2020. The patient was seen and examined chart reviewed please mention note. Palpation was discussed the case with surgery [id number] was seen before he went to surgery for the information obtained A 39-year-old male with known history of diverticulitis, comes into the ED with complaints of diffuse abdominal pain that began since Monday last week. The patient reports that he was diagnosed with diverticulitis approximately 10 to 12 years ago. He has been on and off with pain. He reports having colonoscopy many years ago and told him about this diagnosis. He used to take antibiotics with much improvement. Last week, he noted to have an acute abdominal pain, radiated to more toward the left lower quadrant and then started diffusely given severe pain. He has been having just clear liquid diet at home, but no fever. Due to excruciating pain, he came into the ED for further evaluation and management. CT imaging was consistent with a perforated sigmoid diverticulitis with a pneumoperitoneum with air containing lower mesenteric abscess seen. The patient was taken to the OR by Dr. Senior and had extensive surgery. The patient is seen for followup where he is currently doing well with no issues at this time. REVIEW OF SYSTEMS: Pertinent positives; abdominal pain, nausea, decreased oral intake, vomiting. The rest of 14-point review of systems have been reviewed with the patient and are negative. ALLERGIES: NO KNOWN DRUG ALLERGIES. HOME MEDICATIONS: None. PAST MEDICAL HISTORY: Diverticulitis. PAST SURGICAL HISTORY: He reports none. FAMILY HISTORY: None. SOCIAL HISTORY: No drugs. No alcohol. He does not smoke. He is . Good social support. PHYSICAL EXAMINATION: VITAL SIGNS: Temperature is 98.7, pulse 79, respiratory rate is 12, blood pressure 120/93, pulse ox 99% on 2 L nasal cannula. GENERAL: No acute distress. Alert and oriented x3. Cooperative on examination. HEENT: Head is normocephalic, atraumatic. Eyes, pupils are equal, round, reactive to light bilaterally. Extraocular movements are intact bilaterally. Throat, no evidence of erythema or exudates in the posterior pharynx. Has poor dentition. NECK: Supple. Good range of motion. PULMONARY: Clear to auscultation bilaterally. No wheezing, no rales, no rhonchi, no crackles appreciated. CARDIOVASCULAR: Positive S1 and S2. No murmurs, rubs, or gallops appreciated. ABDOMEN: Soft, nondistended, and nontender to palpation. Bowel sounds present. MUSCULOSKELETAL: Strength is 5/5 throughout. No evidence of any muscle deficits on examination. No weakness appreciated. NEUROLOGICAL: Cranial nerves II through XII grossly intact. No evidence of any neurological deficits on exam. SKIN: Intact. Warm to touch. Good cap refill. PSYCHIATRIC: Normal affect and mood. EXTREMITIES: No edema. Good range of motion throughout. LABORATORY DATA: Show white count was 12, hemoglobin 11, hematocrit 35, and platelets of 235. Chemistry; sodium 136, potassium 4, chloride 104, bicarb 23, anion gap of 13, BUN is 13, creatinine is 0.79, glucose is 126, calcium is 8.1. Lactic acid is 0.9. LFTs within normal range. Troponins are negative. Albumin 3.3. Lipase is 16. Urinalysis noted. Urine drug screen shows positive for amphetamine. Serology; coronavirus is pending. MICROBIOLOGY: Blood cultures, no growth. Urine culture is pending. IMAGING STUDIES: CT abdomen and pelvis shows a perforated sigmoid diverticulitis with small volume hemoperitoneum with 8.37 air fluid containing There was also some thickening of the sigmoid wall. Hepatic steatosis suspected, gallbladder sludge. IMPRESSION: 1. Perforated diverticulitis with peritonitis with underlying abscess. 2. History of diverticulitis. PLAN: patient underwent surgery. Discussed with the surgery antibiotic will modify in the morning continue supportive care will follow
[2020-03-10] MEDS: CEFEPIME 2 GM/NS 0.9% 100 ML 100 ML IV SCH ×2 (14:39→20:41)
[2020-03-10] MEDS ORDERED: CEPACOL SORE THROAT LOZENGES PO PRN (16:15)
[2020-03-10] MEDS: PANTOPRAZOLE 40 MG 10ML VIAL IV SCH (16:32)
--- NOTE | 2020-03-10 20:47 | Progress Note ---
DATE: 03/10/2020 Medicine Progress Note SUBJECTIVE: The patient is doing much better today. He still has pain, but it has improved. He reports doing much better compared to yesterday. He is not ambulatory at this moment per General Surgery. PHYSICAL EXAMINATION: VITAL SIGNS: Temperature 99.2, pulse 88, respiratory rate is 24, blood pressure 146/86, pulse ox is 94% on 2 L nasal cannula and he has an NG tube. GENERAL: Not in acute distress. Alert and oriented x3. Cooperative on examination. HEENT: Head; normocephalic, atraumatic. Eyes; pupils are equal, round, and reactive to light bilaterally. Extraocular movements intact bilaterally. Throat; no evidence of erythema or exudates in the posterior pharynx. Has poor dentition. NECK: Supple. Good range of motion. PULMONARY: Clear to auscultation bilaterally. No wheezing, no rales, no rhonchi, no crackles appreciated. CARDIOVASCULAR: Positive S1 and S2. No murmurs, rubs, or gallops appreciated. ABDOMEN: Soft, nondistended, and nontender to palpation. Bowel sounds present. MUSCULOSKELETAL: Strength is 5/5 throughout. No evidence of any muscle deficits on examination. No weakness appreciated. NEUROLOGIC: Cranial nerve II through XII grossly intact. No evidence of any neurological deficits on exam. SKIN: Intact. Warm to touch. Good cap refill. PSYCHIATRIC: Normal affect and mood. EXTREMITIES: No edema. Good range of motion throughout. LABORATORY FINDINGS: Show white count 11.2, hemoglobin 11.2, hematocrit 34.2, platelets of 271. Chemistry; sodium 138, potassium 3.8, chloride 107, bicarb 29, anion gap of 13, BUN 12, creatinine 0.8, glucose 148, lactic acid 0.9, calcium 7.6. LFTs within normal range. MICROBIOLOGY: Blood cultures, no growth. Urine cultures, no growth. IMAGING STUDIES: Nothing new. IMPRESSION: 1. Perforated diverticulitis with peritonitis with underlying abscess. 2. History of diverticulitis. PLAN: This is postop day #1. The patient is doing much better. He is on pain control n.p.o. NG tube intermittent wall suctioning. He is on IV fluids for nutrition at this time, but if he continues at this route, we will initiate IV PPN. Blood and urine cultures, no growth to-date. Continue with broad-spectrum IV antibiotic therapy. ID is following. We will initiate anticoagulation tomorrow if agreed upon with Surgery. I need to talk with General Surgery and see if this is an option since this is recent surgery and an extensive surgery that was performed. I have discussed the plan of care with nursing staff. Consultants involved or General Surgery and ID. MD REEMA Cantu/NIKHIL /[id number]
[2020-03-11] VITALS (7 sets, daily range): BP systolic 144–162; BP diastolic 77–91
[2020-03-11] MEDS: METRONIDAZOLE 500MG/NS 100ML 100 ML IV SCH ×4 (00:16→16:50)
[2020-03-11] MEDS: SODIUM CHLORIDE 0.9% 1000ML 1,000 ML IV SCH ×2 (00:16→06:47)
[2020-03-11] MEDS: CEFEPIME 2 GM/NS 0.9% 100 ML 100 ML IV SCH ×4 (02:35→19:42)
[2020-03-11] MEDS: SODIUM CHLORIDE 0.9% 250ML IRRIG IR SCH ×6 (03:50→23:45)
[2020-03-11] MEDS ORDERED: ACETAMINOPHEN 1000 MG/100 ML IV PRN ×2 (07:30→11:45)
[2020-03-11 07:55] LABS: BASOPHILS % 0.2 % (0.0-1.0); EOSINOPHILS # (AUTO) 0.1 (0.0-0.4); EOSINOPHILS % 0.7 % (0.0-6.0); HEMOGLOBIN 10.6 g/dL (14.0-18.0); LYMPHOCYTES # (AUTO) 1.3 (1.0-3.2); LYMPHOCYTES % 12.7 % (18.0-39.1); MEAN CORPUSCULAR HGB CONC 32.1 g/dL (31-35); MEAN CORPUSCULAR VOLUME 90.4 fL (81-99); MONOCYTES # (AUTO) 0.8 (0.2-0.8); MONOCYTES % 8.4 % (4.4-11.3); NEUTROPHILS # (AUTO) 7.7 (2.1-6.9); NEUTROPHILS % 76.9 % (38.7-80.0); PLATELET COUNT 318 x10e3/uL (140-360); RED BLOOD COUNT 3.65 x10e6/uL (4.3-5.7); RED CELL DISTRIBUTION WIDTH 12.9 % (11.7-14.4)
[2020-03-11 08:14] LABS: ANION GAP 14.6 mmol/L (8-16); BLOOD UREA NITROGEN 15 mg/dL (7-26); BUN/CREATININE RATIO 19 (6-25); CALCIUM 8.1 mg/dL (8.4-10.2); CARBON DIOXIDE 23 mmol/L (22-29); CHLORIDE 115 mmol/L (98-107); EST GLOMERULAR FILTRATION RATE > 60 ML/MIN (60-); GLUCOSE 141 mg/dL (74-118); POTASSIUM 3.6 mmol/L (3.5-5.1); SODIUM 149 mmol/L (136-145)
--- NOTE | 2020-03-11 08:43 | Progress Note ---
DATE: SUBJECTIVE: The patient's pain is under control. He denies any nausea, vomiting, or passing flatus. OBJECTIVE: VITAL SIGNS: He has a low-grade temperature but no temperature spike. Temperature now is 99.1, pulse 83, and blood pressure 156/82. His urinary output is 5400 mL for the last 24 hours, gastric drainage is 100. The Wilner-North drain from the wound is 13 mL. The pelvic drain 40 mL over the last 24 hours. GENERAL: The patient is awake and alert. ABDOMEN: Examination of the abdomen reveals a colostomy. There is a little dusky, but appears to be pinking up nicely. There was no output yet. I did not hear any bowel sounds. Dressing is dry. Wilner-North drainage is serosanguineous. The Geiger is in situ and the urine is yellow. LABORATORY DATA: White count is pending at the time of the dictation. The chemistries are pending. ASSESSMENT: Status post exploratory laparotomy for perforated diverticulitis with cecal generalized peritonitis mainly pelvic. The patient at this point is hemodynamically stable. He is progressing as well as can be expected under the circumstances. PLAN: To continue the current treatment as it is. Keep the NG tube in. Keep the Geiger in, n.p.o. intravenous antibiotics as per Dr. Lynch. We will repeat labs tomorrow and daily and encourage the patient to take deep breath and cough. MD VANNESA Hernandez/NIKHIL /[id number]
[2020-03-11] MEDS: KCL 20MEQ/.9 SOD CHL 1,000 ML IV SCH ×2 (09:04→19:34)
[2020-03-11] MEDS: HYDROMORPHONE 0.2MG/ML-SOD CHL 30ML PCA SYRINGE IV PRN (11:10)
[2020-03-11] MEDS ORDERED: SODIUM CHLORIDE 0.9% 250ML IRRIG IR SCH (11:45)
[2020-03-11] MEDS ORDERED: SODIUM CHLORIDE 0.9% 1000ML 1,000 ML IV SCH (11:45)
[2020-03-11] MEDS ORDERED: KETOROLAC TROMETHAMINE 30 MG/ML VIAL IV PRN (11:45)
[2020-03-11] MEDS ORDERED: HYDROMORPHONE 0.2MG/ML-SOD CHL 30ML PCA SYRINGE IV PRN (11:45)
[2020-03-11] MEDS ORDERED: NALOXONE HCL INJ 0.4 MG/ML AMP IV PRN (11:45)
[2020-03-11] MEDS ORDERED: PANTOPRAZOLE 40 MG 10ML VIAL IV SCH (11:45)
[2020-03-11] MEDS ORDERED: ONDANSETRON HCL INJ 2MG/ML 2ML 2 MG/ML VIAL IV PRN (11:45)
[2020-03-11] MEDS ORDERED: CEFOXITIN 1GM/0.9% NS 50ML 50 ML IV SCH (12:00)
--- NOTE | 2020-03-11 12:37 | NUR ---
infectious disease progress note. The Patient seen and examined chart reviewed. Medication list reviewed. Discussed the medical team prepared patient is doing better in general still with some abdominal pain bUT OVERALL IMPROVING He has a low-grade temperature but no temperature spike.Vitals are stable afebrile Temperature now is 99.1, pulse 83, and blood pressure 156/82. His urinary output is 5400 mL for the last 24 hours, gastric drainage is 100. The Wilner-North drain from the wound is 13 mL. The pelvic drain 40 mL over the last 24 hours. GENERAL: The patient is awake and alert. does not seem to be in acute distress. HEENT normocephalic not pale or icteric neck supple no JVD chest clear bilateral heart S1-S2 abdomen soft bowel sounds present extremities no edema ABDOMEN: Examination of the abdomen reveals a colostomy. There is a little dusky, but appears to be pinking up nicely. There was no output yet. I did not hear any bowel sounds. Dressing is dry. Wilner-North drainage is serosanguineous. The Geiger is in situ and the urine is yellow. LABORATORY DATA: HIS wbc IS NORMAL LEVEL DUE TO REVIEWED ASSESSMENT: Status post exploratory laparotomy for perforated diverticulitis with cecal generalized peritonitis mainly pelvic. The patient at this point is hemodynamically stable. He is progressing as well as can be expected under the circumstances. CONTINUE WITH CURRENT CHOICE iv ANTIBIOTIC CONTINUE WITH SUPPORTIVE CARE
--- NOTE | 2020-03-11 16:00 | NUR ---
Pt received from [facility] at this time. Pt is aox3 and able to verbalize needs. Denies any pain at this time. Pt is on a MEDICAL OFFICE RECEPTIONIST ASSISTANT pump. Colostomy bag in place to left lower quadrant with small amount of blood noted. LOBO drains to left and right abdomen noted with small amount of serous drain noted. Ng tube in place to left nare that will be attached to wall suction.
[2020-03-11] MEDS: PANTOPRAZOLE 40 MG 10ML VIAL IV SCH (16:50)
--- NOTE | 2020-03-11 19:30 | NUR ---
SBAR REPORT RECEIVED FROM [facility] PT AOX4, PRIMARILY ROMANSH SPEAKING , BUT UNDERSTANDS MOST MAURITANIAN, IV INTACT TO RIGHT AC#20G, CONTINUOUS IV FLUIDS WITH FIRER TUNNEL KILN DILAUDID FOR PAIN, TELE AT BEDSIDE, NO PAIN NOTED OR DISTRESS AT THIS TIME. BED IN LOWEST POSITION, CALL LIGHT WITHIN REACH
[2020-03-11] MEDS ORDERED: HEPARIN SOD (PORCINE) 5,000 UNIT/ML VIAL SC ONE (23:30)
[2020-03-12] VITALS (15 sets, daily range): BP systolic 146–168; BP diastolic 84–93
--- NOTE | 2020-03-12 00:01 | NUR ---
ORDERED BY , ATTEMPTED TO FLUSH NG TUBE WITH 30CC OF NS, UNABLE TO DO SO, NG TUBE WILL NOT FLUSH, CHARGE NURSE JERE MADE AWARE SHE ATTEMPTED TO FLUSHES AGAIN, WHEN ATTEMPTING TO FLUSH MET WITH ALOT OF RESISTANCE, CXR ORDERED TO CHECK PLACEMENT OF NG TUBE
--- NOTE | 2020-03-12 00:06 | NUR ---
RADIOLOGY ON THE FLOOR TO CHECK PLACEMENT OF NG TUBE VIA CXR
[2020-03-12] MEDS: METRONIDAZOLE 500MG/NS 100ML 100 ML IV SCH ×5 (00:19→23:16)
[2020-03-12] MEDS: CEFEPIME 2 GM/NS 0.9% 100 ML 100 ML IV SCH ×4 (00:51→20:30)
--- NOTE | 2020-03-12 01:09 | NUR ---
CXR RESULTS REMAIN PENDING TO CHECK PLACEMENT OF NG TUBE, SMALL AMOUNT OF GREEN BILE REMAINS SITTING IN TUBE, SMALL AMOUNT OF BILE NOTED IN RESERVOIR, PATIENT STATES PAIN LEVEL IS SAME NO CHANGE, ENCOURAGED TO USE SOFTWARE TEAM LEADER DILAUDID FOR PAIN RELIEF, CALL LIGHT & PAIN BUTTON WITHIN REACH
--- NOTE | 2020-03-12 01:18 | Progress Note ---
DATE: 03/11/2020 Medicine Progress Note SUBJECTIVE: The patient is doing well today with no complaints. He reports having a little bit of flatus, but still not there. He is still n.p.o. PHYSICAL EXAMINATION: VITAL SIGNS: Temperature 99.5, pulse is 82, respiratory rate 18, blood pressure 116/91, pulse ox 95% on room air. GENERAL: Not in acute distress. Alert and oriented x3. Cooperative on examination. HEENT: Head; normocephalic, atraumatic. Eyes; pupils are equal, round, and reactive to light bilaterally. Extraocular movements intact bilaterally. NECK: Supple. Good range of motion. PULMONARY: Clear to auscultation bilaterally. No wheezing, no rales, no rhonchi, no crackles appreciated. CARDIOVASCULAR: Positive S1 and S2. No murmurs, rubs, or gallops appreciated. ABDOMEN: Soft, nondistended, and nontender to palpation. Bowel sounds present. MUSCULOSKELETAL: Strength is 5/5 throughout. No evidence of any muscle deficits on examination. No weakness appreciated. NEUROLOGIC: Cranial nerve II through XII grossly intact. No evidence of any neurological deficits on exam. SKIN: Intact. Warm to touch. Good cap refill. PSYCHIATRIC: Normal affect and mood. EXTREMITIES: No edema. Good range of motion throughout. LABORATORY DATA: Show white count 10, hemoglobin 10 , hematocrit 32, platelets of 318. Chemistry; sodium 149, potassium 3.6, chloride 115, bicarb 20, anion gap of 14, BUN is 15, creatinine 0.80, calcium is 8.1. Urinalysis noted. Coronavirus is negative. Blood and urine cultures were negative. IMAGING STUDIES: Nothing new. IMPRESSION: 1. Perforated diverticulitis with peritonitis with underlying abscess. 2. History of diverticulitis. PLAN: At this time, postop day #2. He is doing very well. . IV fluids were reviewed, reached today by Surgery. He seems like he does not want IV TPN for now, he feels that maybe tomorrow he will be on diet. ID and General surgery are following. Heparin has been initiated. Continue to follow very closely. Get a.m. labs. MD REEMA Cantu/MODL /[id number]
--- NOTE | 2020-03-12 01:25 | Diagnostic Imaging Report ---
EXAMINATION: CHEST SINGLE (PORTABLE) 1 view INDICATION: CHECK PLACEMENT OF NG TUBE NOT FLUSHING COMPARISON: None FINDINGS: Enteric tube tip and sidehole project over the expected area of the stomach. Borderline dilated air-filled loops of small bowel measuring up to 2.6 cm, likely mild postoperative ileus. Surgical drain and skin radha project over the midline pelvis. The lungs are not included in the [id number]. Inferior pelvis and portions of the right hemiabdomen are not included in the pvrva-sm-disl. IMPRESSION: Enteric tube tip and sidehole project over the expected area of the stomach. Signed by: Sabino Gallardo MD on 03/12/2020 1:22 AM
--- NOTE | 2020-03-12 01:40 | NUR ---
CHEST XRAY RESULTS IMPRESSION Enteric tube tip and sidehole project over the expected area of the stomach. PER RESULTS NO ADJUSTMENT NEEDED, WILL CONTINUE TO MONITOR PATIENT
[2020-03-12] MEDS: SODIUM CHLORIDE 0.9% 250ML IRRIG IR SCH ×3 (03:58→11:36)
--- NOTE | 2020-03-12 04:30 | NUR ---
MD HENRY CONTACTED REGARDING NG TUBE NOT FLUSHING WELL AND SMALL AMOUNT OF DRAINAGE NOTED, MD HENRY MADE AWARE THAT CXR WAS ORDER TO VERIFY PLACEMENT, RESULT READ TO MD, MD HENRY STATED "DO NOTHING LET SURGERY HANDLE IT, THEY MAY WANT IT OUT" NO NEW ORDERS GIVEN
[2020-03-12 05:05] LABS: BASOPHILS % 0.4 % (0.0-1.0); EOSINOPHILS # (AUTO) 0.2 (0.0-0.4); HEMATOCRIT 34.7 % (38.2-49.6); LYMPHOCYTES # (AUTO) 1.4 (1.0-3.2); LYMPHOCYTES % 16.4 % (18.0-39.1); MEAN CORPUSCULAR HGB CONC 31.7 g/dL (31-35); MEAN CORPUSCULAR VOLUME 91.6 fL (81-99); MONOCYTES # (AUTO) 0.8 (0.2-0.8); NEUTROPHILS # (AUTO) 5.9 (2.1-6.9); NEUTROPHILS % 71.4 % (38.7-80.0); PLATELET COUNT 364 x10e3/uL (140-360); RED BLOOD COUNT 3.79 x10e6/uL (4.3-5.7); RED CELL DISTRIBUTION WIDTH 12.9 % (11.7-14.4)
[2020-03-12 05:35] LABS: ALANINE AMINOTRANSFERASE 22 IU/L (0-55); ALBUMIN 2.2 g/dL (3.5-5.0); ALBUMIN/GLOBULIN RATIO 0.6 (0.8-2.0); ALKALINE PHOSPHATASE 55 IU/L (40-150); BLOOD UREA NITROGEN 18 mg/dL (7-26); BUN/CREATININE RATIO 24 (6-25); CALCIUM 8.5 mg/dL (8.4-10.2); CARBON DIOXIDE 23 mmol/L (22-29); CHLORIDE 116 mmol/L (98-107); CREATININE, SERUM 0.76 mg/dL (0.72-1.25); EST GLOMERULAR FILTRATION RATE > 60 ML/MIN (60-); GLUCOSE 133 mg/dL (74-118); SODIUM 151 mmol/L (136-145)
--- NOTE | 2020-03-12 07:00 | NUR ---
received bedside report. pt is alert resting in bed, no s/s of distress. pt is on Dilaudid BUCKLE STRINGER pump, history was documented and shift was cleared with night RN. call light within reach and instructed pt to call for help. bed safety in place
[2020-03-12] MEDS ORDERED: HEPARIN SOD (PORCINE) 5,000 UNIT/ML VIAL SC SCH (09:00)
--- NOTE | 2020-03-12 09:14 | NUR ---
NGT is non-functional, cannot flush or aspirate. pulled back on NGT slightly with no changes. paged Dr Carlos Senior and waiting for call back
--- NOTE | 2020-03-12 09:16 | NUR ---
received call back from Dr. Carlos Senior, informed him of non-functioning NGT. stated to leave tube in place and try "wiggling" the tube to see if there is any change. He will see the patient later today
--- NOTE | 2020-03-12 09:20 | NUR ---
received call from Dr. Senior, he gave orders to disconnect the NGT from wall suction.
[2020-03-12] MEDS: KCL 20MEQ/.9 SOD CHL 1,000 ML IV SCH (09:30)
[2020-03-12] MEDS: HEPARIN SOD (PORCINE) 5,000 UNIT/ML VIAL SC SCH ×2 (12:10→20:31)
[2020-03-12] MEDS: HYDROMORPHONE 0.2MG/ML-SOD CHL 30ML PCA SYRINGE IV PRN (14:40)
--- NOTE | 2020-03-12 16:28 | NUR ---
INFECTIOUS DISEASE PROGRESS NOTE HISTORY OF PRESENT ILLNESS: The patient is a very pleasant 39-year-old male who has a long-standing history of recurrent attacks of diverticulitis, multiple, none of which have required hospitalization. the patient comes in the hospital complaining of abdominal pain apparently it was started a few days ago. The patient developed since Monday lower left-sided abdominal pain which progressively got worse until yesterday at which time he could not tolerate any longer the pain, reason for which he came to the emergency room. In the emergency room, the patient underwent a CT scan of the abdomen and pelvis that revealed perforated diverticulitis with a mesenteric interloop type of fluid collection and multiple pockets of free air including the abdominal wall. The patient's white count is 16,000. Vital signs are stable. Patient is being admitted surgery and consulted is going for surgery I was asked to see him to make a recommendation terms of antibiotic the patient is currently complaining of abdominal pain PAST MEDICAL HISTORY: Significant for hypertension and high cholesterol. ALLERGIES: HE HAS NO KNOWN ALLERGIES. REVIEW OF SYSTEMS: Significant for what has already been stated.otherwise 14 points within normal limit PHYSICAL EXAMINATION: GENERAL: Reveals a 39-year-old male who complains of abdominal pain. At this point, he is afebrile with stable vital signs. HEAD, EAR, NOSE, and THROAT: Unremarkable. normocephalic LUNGS: Clear. bilateral HEART: Reveals regular sinus rhythm. S1-S2 there is no S3-S4 or murmur ABDOMEN: Reveals diffuse tenderness with rebound on deep palpation. The tenderness is more shiv in the left lower quadrant. EXTREMITIES: Reveal no clubbing, cyanosis, or edema. neuro nonfocal LABORATORY DATA: Labs have been discussed. Normal electrolytes. CT scan has already been discussed. Peritonitis. Ruptured diverticular disease diverticulitis. S/p surgery: on Cefepime and Flagyl. 2 LOBO drains. Plan for 2 weeks IV ABT. Set up through the [facility]. Plan for 2 weeks of IV Cefepime and po Flagyl.
[2020-03-12] MEDS: PANTOPRAZOLE 40 MG 10ML VIAL IV SCH (16:57)
[2020-03-12] MEDS: DEXTROSE 5% 1,000 ML IV SCH (17:07)
--- NOTE | 2020-03-12 19:10 | NUR ---
RECEIVED REPORT FROM PREVIOUS NURSE. CALL LIGHT WITHIN REACH. PATIENT IN BED.
[2020-03-13] VITALS (8 sets, daily range): BP systolic 149–161; BP diastolic 68–91
--- NOTE | 2020-03-13 00:52 | Progress Note ---
DATE: 03/12/2020 Medicine Progress Note SUBJECTIVE: The patient is doing very well. Still n.p.o. He states reporting a very minimal gas, but still is not there yet. PHYSICAL EXAMINATION: VITAL SIGNS: Temperature is 98.6, pulse 60, respiratory rate is 20, blood pressure 153/85, pulse ox 95% on room air. GENERAL: In no acute distress. Alert and oriented x3. Cooperative on examination. PULMONARY: Clear to auscultation bilaterally. No wheezing, rales, or rhonchi. No crackles appreciated. CARDIOVASCULAR: Positive S1 and S2. No murmurs, rubs, or gallops appreciated. ABDOMEN: Soft, nondistended, and nontender to palpation. Bowel sounds present. MUSCULOSKELETAL: Strength is 5/5 throughout. No evidence of any muscle deficits on examination. No weakness appreciated. NEUROLOGIC: Cranial nerve II through XII grossly intact. No evidence of any neurological deficits on exam. SKIN: Intact. Warm to touch. Good cap refill. PSYCHIATRIC: Normal affect and mood. EXTREMITIES: No edema. Good range of motion throughout. LABORATORY DATA: Labs show white count 8.3, hemoglobin 11, hematocrit is 34, and platelets of 364. His chemistry is review, shows sodium 151, potassium 4, chloride 116, bicarb 23, anion gap of 16, BUN is 18, creatinine 0.76, calcium 8.5. LFTs within normal range. MICROBIOLOGY: None. IMAGING STUDIES: Chest x-ray, . IMPRESSION: 1. Perforated diverticulitis with peritonitis with underlying abscess. 2. History of diverticulitis. 3. Hypernatremia. PLAN: At this time, continue with n.p.o. per General Surgery. He is postop day #3. Get a.m. labs. I did change the IV fluids to D5W. Monitor very closely with a.m. labs for rapid correction. The patient is otherwise doing well with no issues. Encourage ambulation. Heparin for DVT prophylaxis. MD REEMA Cantu/NIKHIL /[id number]
[2020-03-13] MEDS: CEFEPIME 2 GM/NS 0.9% 100 ML 100 ML IV SCH ×4 (02:22→20:03)
[2020-03-13] MEDS: DEXTROSE 5% 1,000 ML IV SCH (02:45)
[2020-03-13] MEDS: HYDROMORPHONE 0.2MG/ML-SOD CHL 30ML PCA SYRINGE IV PRN ×2 (04:45→16:48)
[2020-03-13 04:47] LABS: BASOPHILS % 0.3 % (0.0-1.0); EOSINOPHILS # (AUTO) 0.3 (0.0-0.4); EOSINOPHILS % 4.3 % (0.0-6.0); HEMATOCRIT 34.8 % (38.2-49.6); HEMOGLOBIN 10.9 g/dL (14.0-18.0); LYMPHOCYTES # (AUTO) 1.5 (1.0-3.2); LYMPHOCYTES % 19.4 % (18.0-39.1); MEAN CORPUSCULAR HEMOGLOBIN 28.4 pg (28-32); MEAN CORPUSCULAR HGB CONC 31.3 g/dL (31-35); MEAN CORPUSCULAR VOLUME 90.6 fL (81-99); MONOCYTES # (AUTO) 0.6 (0.2-0.8); NEUTROPHILS # (AUTO) 5.2 (2.1-6.9); NEUTROPHILS % 66.4 % (38.7-80.0); PLATELET COUNT 377 x10e3/uL (140-360); RED BLOOD COUNT 3.84 x10e6/uL (4.3-5.7); RED CELL DISTRIBUTION WIDTH 12.6 % (11.7-14.4)
[2020-03-13 05:02] LABS: ANION GAP 14.7 mmol/L (8-16); BLOOD UREA NITROGEN 17 mg/dL (7-26); BUN/CREATININE RATIO 23 (6-25); CALCIUM 8.2 mg/dL (8.4-10.2); CARBON DIOXIDE 21 mmol/L (22-29); CHLORIDE 113 mmol/L (98-107); CREATININE, SERUM 0.73 mg/dL (0.72-1.25); EST GLOMERULAR FILTRATION RATE > 60 ML/MIN (60-); GLUCOSE 127 mg/dL (74-118); POTASSIUM 3.7 mmol/L (3.5-5.1); SODIUM 145 mmol/L (136-145)
[2020-03-13] MEDS: METRONIDAZOLE 500MG/NS 100ML 100 ML IV SCH ×4 (05:36→23:37)
--- NOTE | 2020-03-13 07:06 | NUR ---
GAVE BEDSIDE SHIFT REPORT TO ONCOMING NURSE. PATIENT IN BED. CALL LIGHT WITHIN REACH. HOURLY ROUNDING PERFORMED. AUTOGLAZIER PUMP GOING
[2020-03-13] MEDS ORDERED: SOD CHL 0.45%/POT CHL 20MEQ 1,000 ML IV ONE ×2 (08:30→08:40)
--- NOTE | 2020-03-13 08:30 | NUR ---
The pt. was received post report from the current nurse and the pt. is in stable condition. He is scheduled for MRI and possible discharge today. Addendum: 03/13/20 at 0939 by Mala Arias RN note entered into the wrong chart.
[2020-03-13] MEDS: D5.45%NS/KCL 20MEQ 1,000 ML IV SCH ×2 (09:27→17:55)
[2020-03-13] MEDS: HEPARIN SOD (PORCINE) 5,000 UNIT/ML VIAL SC SCH ×2 (09:28→21:00)
--- NOTE | 2020-03-13 10:30 | NUR ---
Dr. Senior visited with orders given and recorded.
--- NOTE | 2020-03-13 15:28 | NUR ---
Nishant ALEXANDER planning assistance - Darnell Sotelo [phone] ext [phone]
--- NOTE | 2020-03-13 15:41 | NUR ---
Nutrition Intervention Note RD Recommendation(s) for Physician: -Recommend advancing to GI soft diet when medically appropriate -If diet is unable to be advanced, recommend TPN Plan of Care: RD following, monitoring for tolerance and adequacy Nutrition reason for involvement: NPO diet order > [address] Assessment (03/13/20) Pt is a 39 year old male admitted with perforation and abscess of large intestine concurrent with and due to diverticulitis. 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 Pt has been NPO x 5 days. It is also noted that pt had been consuming a clear liquid diet at home. Pt is primarily Andor[place] speaking per chart. There are no reports of recent unintentional weight loss prior to admission. Recommend advancing diet when medically appropriate. If diet is unable to be advanced, consider alternative means of nutrition. Principal Problems/Diagnoses: perforation and abscess of large intestine concurrent with and due to diverticulitis PMH: diverticulitis GI: soft, tender abdomen Skin: medial abdominal wound Labs: (03/13) Na 145, K 3.7, BUN 17, Cr 0.73, Glu 127 Meds: antibiotic, dilaudid, zofran Ht: 70 inches Wt: 230 lbs BMI: 33.0 kg/m2 IBW: 166 lbs Malnutrition Evaluation (03/13/20) The patient does not meet criteria for a specified degree of malnutrition at this time. Will re-evaluate at follow-up as appropriate. Energy intake: <50% of estimated energy requirements for > 5 days Weight loss: No weight loss reported per chart Fat loss: unable to evaluate Muscle loss: unable to evaluate Supporting Evidence: Fluid accumulation: no edema per MD note Functional Status: unable to evaluate Nutrition Prescription (Diet Order): NPO Estimated Nutritional Needs: 2459-4308 calories/day (22-25 kcal/kg IBW) 113-150 g protein/day (1.5-2 g pro/kg IBW) Diet Adequacy: Not meeting calorie needs, Not meeting protein needs Tolerance: N/A Diet Education Needs Assessment:. Diet education not indicated, patient on temporary/transition diet. Nutrition Care Level: moderate Nutrition Diagnosis: Inadequate energy intake related to decreased ability to consume sufficient energy as evidenced by insufficient energy intake from diet compared to needs Goal: Patient will meet 75-100% of estimated needs by follow up Progress: N/A Interventions: -fiber -modified diet Monitoring/Evaluation: -Total energy intake, Total protein intake, Modified diet, Weight change Signed: Yasmeen Pierre RD, LD
[2020-03-13] MEDS: PANTOPRAZOLE 40 MG 10ML VIAL IV SCH (16:38)
--- NOTE | 2020-03-13 16:55 | NUR ---
he patient is doing very well. Still n.p.o. He states reporting a very minimal gas, but still is not there yet. PHYSICAL EXAMINATION: VITAL SIGNS: Temperature is 98.6, pulse 60, respiratory rate is 20, blood pressure 153/85, pulse ox 95% on room air. GENERAL: In no acute distress. Alert and oriented x3. Cooperative on examination. PULMONARY: Clear to auscultation bilaterally. No wheezing, rales, or rhonchi. No crackles appreciated. CARDIOVASCULAR: Positive S1 and S2. No murmurs, rubs, or gallops appreciated. ABDOMEN: Soft, nondistended, and nontender to palpation. Bowel sounds present. MUSCULOSKELETAL: Strength is 5/5 throughout. No evidence of any muscle deficits on examination. No weakness appreciated. NEUROLOGIC: Cranial nerve II through XII grossly intact. No evidence of any neurological deficits on exam. SKIN: Intact. Warm to touch. Good cap refill. PSYCHIATRIC: Normal affect and mood. EXTREMITIES: No edema. Good range of motion throughout. LABORATORY DATA: Labs show white count 8.3, hemoglobin 11, hematocrit is 34, and platelets of 364. His chemistry is review, shows sodium 151, potassium 4, chloride 116, bicarb 23, anion gap of 16, BUN is 18, creatinine 0.76, calcium 8.5. LFTs within normal range. due to the severity of the infection disseminated peritonitis we will get a PICC line for IV antibiotic
--- NOTE | 2020-03-13 22:02 | Diagnostic Imaging Report ---
EXAMINATION: CHEST XRAY LINE PLACEMENT INDICATION: PICC LINE PLACEMENT COMPARISON: None FINDINGS: TUBES and LINES: Left PICC tip projects over the distal SVC. LUNGS: Normal lung volumes. Strandy bibasilar opacities.. No consolidations. PLEURA: No pleural effusion or pneumothorax. HEART AND MEDIASTINUM: The cardiomediastinal silhouette is unremarkable. BONES AND SOFT TISSUES: No acute osseous lesion. Soft tissues are unremarkable. UPPER ABDOMEN: No free air under the diaphragm. IMPRESSION: Left PICC tip projects over the distal SVC. No pneumothorax. Mild bibasilar atelectasis. Signed by: Sabino Gallardo MD on 03/13/2020 9:59 PM
[2020-03-14] VITALS (8 sets, daily range): BP systolic 100–183; BP diastolic 52–109
[2020-03-14] MEDS: CEFEPIME 2 GM/NS 0.9% 100 ML 100 ML IV SCH ×4 (01:54→20:20)
--- NOTE | 2020-03-14 02:22 | Progress Note ---
DATE: Medicine Progress Note SUBJECTIVE: The patient reportedly feels very hungry. He is very patient. He has very minimal pain. He is not ready for diet according to General Surgery. PHYSICAL EXAMINATION: VITAL SIGNS: Temperature is 98.4, pulse 54, respiratory rate is 18, blood pressure 161/82, pulse ox 99% on room air. GENERAL: Not in acute distress. Alert and oriented x3. He is very cooperative on examination. HEENT: Head; normocephalic, atraumatic. Eyes; pupils are equal, round, and reactive to light bilaterally. Extraocular movements intact bilaterally. Throat; no evidence of erythema or exudates in the posterior pharynx. Has poor dentition. NECK: Supple. Good range of motion. PULMONARY: Clear to auscultation bilaterally. No wheezing, no rales, no rhonchi, no crackles appreciated. CARDIOVASCULAR: Positive S1 and S2. No murmurs, rubs, or gallops appreciated. ABDOMEN: Soft, nondistended, and nontender to palpation. Bowel sounds present. MUSCULOSKELETAL: Strength is 5/5 throughout. No evidence of any muscle deficits on examination. SKIN: Intact. Warm to touch. Good cap refill. PSYCHIATRIC: Normal affect and mood. EXTREMITIES: No edema. Good range of motion throughout. LABORATORY DATA: Findings show white count 7.8, hemoglobin 10.9, hematocrit is 34, platelets of 377. Chemistry; sodium 145, potassium 3.7, chloride 113, bicarb 21, anion gap 14, BUN 17, creatinine is 0.73, calcium is 8.2. MICROBIOLOGY: All cultures were negative. IMAGING STUDIES: Catheter placement, in which a PICC line has been inserted. IMPRESSION: 1. Perforated diverticulitis with peritonitis, underlying abscess. 2. History of diverticulitis. 3. Hypernatremia, improving. PLAN: At this time, the patient is very hungry, but he is not ready for oral intake per General Surgery. This is postop day #4. Get a.m. labs. Continue with D5W, dehydration status. ID noted recommendations. PICC line ordered. Likely outpatient IV antibiotic therapy. Heparin for DVT prophylaxis. MD REEMA Cantu/NIKHIL /[id number]
[2020-03-14 05:10] LABS: BASOPHILS % 0.2 % (0.0-1.0); EOSINOPHILS # (AUTO) 0.2 (0.0-0.4); EOSINOPHILS % 2.4 % (0.0-6.0); HEMATOCRIT 33.4 % (38.2-49.6); HEMOGLOBIN 10.9 g/dL (14.0-18.0); LYMPHOCYTES # (AUTO) 1.4 (1.0-3.2); LYMPHOCYTES % 15.5 % (18.0-39.1); MEAN CORPUSCULAR HEMOGLOBIN 28.6 pg (28-32); MEAN CORPUSCULAR HGB CONC 32.6 g/dL (31-35); MEAN CORPUSCULAR VOLUME 87.7 fL (81-99); MONOCYTES # (AUTO) 0.6 (0.2-0.8); MONOCYTES % 6.3 % (4.4-11.3); NEUTROPHILS # (AUTO) 6.7 (2.1-6.9); NEUTROPHILS % 73.6 % (38.7-80.0); PLATELET COUNT 364 x10e3/uL (140-360); RED BLOOD COUNT 3.81 x10e6/uL (4.3-5.7); RED CELL DISTRIBUTION WIDTH 11.9 % (11.7-14.4)
[2020-03-14 05:31] LABS: ANION GAP 14.4 mmol/L (8-16); BLOOD UREA NITROGEN 14 mg/dL (7-26); BUN/CREATININE RATIO 21 (6-25); CALCIUM 7.9 mg/dL (8.4-10.2); CARBON DIOXIDE 21 mmol/L (22-29); CHLORIDE 109 mmol/L (98-107); CREATININE, SERUM 0.67 mg/dL (0.72-1.25); EST GLOMERULAR FILTRATION RATE > 60 ML/MIN (60-); GLUCOSE 124 mg/dL (74-118); POTASSIUM 3.4 mmol/L (3.5-5.1); SODIUM 141 mmol/L (136-145)
[2020-03-14] MEDS: D5.45%NS/KCL 20MEQ 1,000 ML IV SCH ×2 (05:49→17:16)
[2020-03-14] MEDS: METRONIDAZOLE 500MG/NS 100ML 100 ML IV SCH ×4 (05:49→23:51)
[2020-03-14] MEDS: HEPARIN SOD (PORCINE) 5,000 UNIT/ML VIAL SC SCH ×2 (10:01→21:00)
[2020-03-14] MEDS ORDERED: HYDROMORPHONE 1MG/1ML INJ IV PRN (11:15)
[2020-03-14] MEDS ORDERED: POTASSIUM CHLORIDE 20MEQ/100ML 200 ML IV ONE (11:15)
[2020-03-14 14:02] LABS: CLARITY,URINE CLEAR (CLEAR); COLOR,URINE YELLOW (YELLOW)
[2020-03-14 14:03] LABS: BILIRUBIN,URINE NEGATIVE (NEGATIVE); KETONES,URINE NEGATIVE (NEGATIVE); LEUKOCYTE ESTERASE ,URINE NEGATIVE (NEGATIVE); NITRITE,URINE NEGATIVE (NEGATIVE); PROTEIN,URINE DIPSTICK NEGATIVE (NEGATIVE); URINE UROBILINOGEN 0.2 mg/dL (0.2 - 1)
[2020-03-14 14:05] LABS: BACTERIA,URINE FEW /HPF; EPITHELIAL CELLS,URINE FEW /LPF; RBC,URINE 0-5 /HPF (0-5); WBC,URINE (MAN) 0-5 /HPF (0-5)
--- NOTE | 2020-03-14 16:46 | NUR ---
infectious disease progress note patient seen and examined chart reviewed patient with no new complaints he would like to eat is still nothing by mouth. Await surgical recommendation. His review of systems otherwise unremarkable is feeling better. Her there is some abdominal discomfort. His physical examination is currently alert oriented vitals stable afebrile HEENT normocephalic. Neck supple chest clear bilateral heart S1-S2 abdomen soft fossa present extremities no edema skin no rash impression peritonitis severe ruptured colon. Physical elisa contamination concerned about micro abscesses in the PICC line Monday IV antibiotic for a couple weeks follow up as an outpatient patient with warned and discussed with him the plan of care
[2020-03-14] MEDS: PANTOPRAZOLE 40 MG 10ML VIAL IV SCH (17:16)
[2020-03-14] MEDS ORDERED: HYDROCODONE/APAP 7.5MG-325MG 1 EA TAB PO PRN (20:00)
[2020-03-14] MEDS ORDERED: PERIPHERAL TPN FORMULA 1 BAG IV SCH (20:00)
[2020-03-15] VITALS (8 sets, daily range): BP systolic 152–168; BP diastolic 90–100
[2020-03-15] MEDS: CEFEPIME 2 GM/NS 0.9% 100 ML 100 ML IV SCH ×4 (01:59→20:15)
--- NOTE | 2020-03-15 03:06 | Progress Note ---
DATE: 03/14/2020 Medicine Progress Note SUBJECTIVE: The patient is sitting in his chair today. He was doing okay. Pain is well controlled. He is still n.p.o. He does report . OBJECTIVE: VITAL SIGNS: Temperature 98.1, , pulse ox 99% on room air. GENERAL: Not in acute distress. Alert and oriented x3. He is very cooperative on examination. HEENT: Head; normocephalic, atraumatic. Eyes; pupils are equal, round, and reactive to light bilaterally. Extraocular movements intact bilaterally. Throat; no evidence of erythema or exudates in the posterior pharynx. Has poor dentition. NECK: Supple. Good range of motion. PULMONARY: Clear to auscultation bilaterally. No wheezing, no rales, no rhonchi, no crackles appreciated. CARDIOVASCULAR: Positive S1 and S2. No murmurs, rubs, or gallops appreciated. ABDOMEN: Soft, nondistended, and nontender to palpation. Bowel sounds present. MUSCULOSKELETAL: Strength is 5/5 throughout. LABORATORY DATA: White count 9.1, hemoglobin 10.9, hematocrit is 33, platelets of 364. Chemistry; sodium 141, potassium 3.1, chloride , anion gap 15, BUN 14 and creatinine is 0.67, glucose 124. MICROBIOLOGY: All cultures were negative. IMPRESSION: 1. Perforated diverticulitis with peritonitis, underlying abscess, status post surgery . 2. History of diverticulitis. 3. Hypernatremia, improving. PLAN: At this time doing well. . Heparin for DVT prophylaxis. MD REEMA Cantu/MODL /[id number]
[2020-03-15] MEDS: D5.45%NS/KCL 20MEQ 1,000 ML IV SCH ×2 (05:00→11:49)
[2020-03-15 05:28] LABS: BASOPHILS % 0.2 % (0.0-1.0); EOSINOPHILS # (AUTO) 0.2 (0.0-0.4); EOSINOPHILS % 1.3 % (0.0-6.0); HEMATOCRIT 33.3 % (38.2-49.6); HEMOGLOBIN 11.4 g/dL (14.0-18.0); LYMPHOCYTES # (AUTO) 1.6 (1.0-3.2); LYMPHOCYTES % 13.7 % (18.0-39.1); MEAN CORPUSCULAR HEMOGLOBIN 30.3 pg (28-32); MEAN CORPUSCULAR HGB CONC 34.2 g/dL (31-35); MEAN CORPUSCULAR VOLUME 88.6 fL (81-99); MONOCYTES # (AUTO) 0.7 (0.2-0.8); MONOCYTES % 6.3 % (4.4-11.3); NEUTROPHILS # (AUTO) 8.7 (2.1-6.9); NEUTROPHILS % 76.3 % (38.7-80.0); PLATELET COUNT 328 x10e3/uL (140-360); RED BLOOD COUNT 3.76 x10e6/uL (4.3-5.7); RED CELL DISTRIBUTION WIDTH 11.9 % (11.7-14.4)
[2020-03-15] MEDS: METRONIDAZOLE 500MG/NS 100ML 100 ML IV SCH ×4 (05:41→23:23)
[2020-03-15 05:48] LABS: ANION GAP 13.5 mmol/L (8-16); BLOOD UREA NITROGEN 12 mg/dL (7-26); BUN/CREATININE RATIO 18 (6-25); CALCIUM 7.9 mg/dL (8.4-10.2); CARBON DIOXIDE 20 mmol/L (22-29); CHLORIDE 106 mmol/L (98-107); CREATININE, SERUM 0.66 mg/dL (0.72-1.25); EST GLOMERULAR FILTRATION RATE > 60 ML/MIN (60-); GLUCOSE 126 mg/dL (74-118); MAGNESIUM 2.2 MG/DL (1.3-2.1); POTASSIUM 3.5 mmol/L (3.5-5.1); SODIUM 136 mmol/L (136-145)
[2020-03-15] MEDS: HEPARIN SOD (PORCINE) 5,000 UNIT/ML VIAL SC SCH ×2 (09:35→20:53)
[2020-03-15] MEDS ORDERED: ONDANSETRON HCL 4 MG ORAL DISINTEGRATING TAB PO PRN (14:45)
[2020-03-15] MEDS: PANTOPRAZOLE 40 MG 10ML VIAL IV SCH (17:14)
[2020-03-15] MEDS: LOSARTAN POTASSIUM 100 MG TAB PO SCH (18:42)
--- NOTE | 2020-03-15 19:13 | Progress Note ---
DATE: 03/15/2020 Medicine Progress Note SUBJECTIVE: The patient is now on clear liquid diet. He has some flatus. He has some abdominal bowel sounds. PHYSICAL EXAMINATION: VITAL SIGNS: Temperature 98.2, pulse 67, respiratory rate is 17, blood pressure 162/94, and pulse ox 100% on room air. GENERAL: Not in acute distress. Alert and oriented x3. Cooperative on examination. PULMONARY: Clear to auscultation bilaterally. No wheezing, no rales, no rhonchi, no crackles appreciated. CARDIOVASCULAR: Positive S1 and S2. No murmurs, rubs, or gallops appreciated. ABDOMEN: Soft, nondistended, and nontender to palpation. Bowel sounds present. MUSCULOSKELETAL: Strength is 5/5 throughout. No evidence of any muscle deficits on examination. No weakness appreciated. NEUROLOGIC: Cranial nerves 2 through 12 grossly intact. No evidence of any neurological deficits on exam. SKIN: Intact. Warm to touch. Good cap refill. PSYCHIATRIC: Normal affect and mood. EXTREMITIES: No edema. Good range of motion throughout. LABORATORY FINDINGS: Show white count 11, hemoglobin 11, hematocrit is 33, and platelets of 328. Chemistry; sodium 136, potassium 3.5, chloride 106, bicarb 20, anion gap of 13, BUN is 12, creatinine is 0.66, magnesium was 2.2, and calcium is 7.9. Urinalysis was negative. MICROBIOLOGY: All cultures were negative. IMAGING STUDIES: None. IMPRESSION: 1. Perforated diverticulitis with underlying peritonitis. 2. History of diverticulitis. 3. Hypernatremia-resolved. 4. Mild protein-calorie malnutrition. PLAN: At this time, the patient is on clear liquid diet. We will discontinue IV fluids as his blood pressure is elevated. Adjust antihypertensive medications. This is postop day #5. Get morning labs. PPN is not needed at this time. ID and General Surgery were all following. Continue with IV antibiotic therapy. Heparin for DVT prophylaxis. MD REEMA Cantu/MODL /[id number]
--- NOTE | 2020-03-15 22:09 | NUR ---
Infectious disease but his note patient seen and examined chart reviewed the patient is clinically improving slowly answered all his questions plan of care reviewed with the patient. The patient is now on clear liquid diet. He has some flatus. He has some abdominal bowel sounds. PHYSICAL EXAMINATION: VITAL SIGNS: Temperature 98.2, pulse 67, respiratory rate is 17, blood pressure 162/94, and pulse ox 100% on room air. GENERAL: Not in acute distress. Alert and oriented x3. Cooperative on examination. PULMONARY: Clear to auscultation bilaterally. No wheezing, no rales, no rhonchi, no crackles appreciated. CARDIOVASCULAR: Positive S1 and S2. No murmurs, rubs, or gallops appreciated. ABDOMEN: Soft, nondistended, and nontender to palpation. Bowel sounds present. MUSCULOSKELETAL: Strength is 5/5 throughout. No evidence of any muscle deficits on examination. No weakness appreciated. NEUROLOGIC: Cranial nerves 2 through 12 grossly intact. No evidence of any neurological deficits on exam. SKIN: Intact. Warm to touch. Good cap refill. PSYCHIATRIC: Normal affect and mood. EXTREMITIES: No edema. Good range of motion throughout. LABORATORY FINDINGS: Show white count 11, hemoglobin 11, hematocrit is 33, and platelets of 328. Chemistry; sodium 136, potassium 3.5, chloride 106, bicarb 20, anion gap of 13, BUN is 12, creatinine is 0.66, magnesium was 2.2, and calcium is 7.9. Urinalysis was negative. MICROBIOLOGY: All cultures were negative. IMAGING STUDIES: None. IMPRESSION: 1. Perforated diverticulitis with underlying peritonitis. 2. History of diverticulitis. 3. Hypernatremia-resolved. 4. Mild protein-calorie malnutrition. the plan is to discharge home tomorrow with intravenous antibiotic please call [phone] outpatient antibiotic has been arranged
[2020-03-16] VITALS (7 sets, daily range): BP systolic 128–156; BP diastolic 81–92
[2020-03-16] MEDS: D5.45%NS/KCL 20MEQ 1,000 ML IV SCH (01:14)
[2020-03-16] MEDS: CEFEPIME 2 GM/NS 0.9% 100 ML 100 ML IV SCH ×4 (02:00→20:51)
[2020-03-16 05:38] LABS: BASOPHILS % 0.3 % (0.0-1.0); EOSINOPHILS # (AUTO) 0.2 (0.0-0.4); EOSINOPHILS % 1.5 % (0.0-6.0); HEMATOCRIT 33.6 % (38.2-49.6); HEMOGLOBIN 11.5 g/dL (14.0-18.0); LYMPHOCYTES # (AUTO) 1.8 (1.0-3.2); LYMPHOCYTES % 17.2 % (18.0-39.1); MEAN CORPUSCULAR HEMOGLOBIN 29.9 pg (28-32); MEAN CORPUSCULAR HGB CONC 34.2 g/dL (31-35); MEAN CORPUSCULAR VOLUME 87.5 fL (81-99); MONOCYTES # (AUTO) 0.7 (0.2-0.8); MONOCYTES % 6.9 % (4.4-11.3); NEUTROPHILS # (AUTO) 7.1 (2.1-6.9); NEUTROPHILS % 70.4 % (38.7-80.0); PLATELET COUNT 350 x10e3/uL (140-360); RED BLOOD COUNT 3.84 x10e6/uL (4.3-5.7); RED CELL DISTRIBUTION WIDTH 11.8 % (11.7-14.4)
[2020-03-16 05:59] LABS: ANION GAP 12.6 mmol/L (8-16); BLOOD UREA NITROGEN 11 mg/dL (7-26); BUN/CREATININE RATIO 16 (6-25); CARBON DIOXIDE 20 mmol/L (22-29); CHLORIDE 108 mmol/L (98-107); EST GLOMERULAR FILTRATION RATE > 60 ML/MIN (60-); GLUCOSE 107 mg/dL (74-118); POTASSIUM 3.6 mmol/L (3.5-5.1); SODIUM 137 mmol/L (136-145)
[2020-03-16] MEDS: METRONIDAZOLE 500MG/NS 100ML 100 ML IV SCH ×4 (06:00→23:07)
--- NOTE | 2020-03-16 07:00 | NUR ---
RECEIVED PATIENT AWAKE RESTING IN BED NO S/S OF DISTRESS. BED LOW, WHEELS LOCKED, SIDE RAILS X2. CALL LIGHT IN REACH WILL CONTINUE TO MONITOR PATIENT.
[2020-03-16] MEDS: HEPARIN SOD (PORCINE) 5,000 UNIT/ML VIAL SC SCH ×2 (08:24→20:56)
[2020-03-16] MEDS: LOSARTAN POTASSIUM 100 MG TAB PO SCH (08:24)
--- NOTE | 2020-03-16 11:26 | NUR ---
MAU PADILLA'D CALL FROM [place] WITH DR LEACH'S OFFICE STATING PT'S IV ABX HAVE BEEN APPROVED PT WILL BE RECEIVING CEFEPIME 1GM IV Q 12 HRS X 2 WEEKS APPT TIME MONDAY AT 12 NOON PLANNED DC HOME ON 03/[address] Sb TRIVEDI GAVE PT WRITTEN DIRECTIONS AND APPT TIME WITH DR LEACH'S OFFICE DR Carlos TRIVEDI SPOKE WITH GIOVANA AT [facility] TO FOLLOW PT OP
[2020-03-16] MEDS: PANTOPRAZOLE 40 MG 10ML VIAL IV SCH (17:14)
[2020-03-16] MEDS ORDERED: SODIUM CHLORIDE 0.9% 250ML 250 ML ONE (20:01)
[2020-03-17] VITALS (8 sets, daily range): BP systolic 125–151; BP diastolic 58–91
--- NOTE | 2020-03-17 00:49 | Progress Note ---
DATE: 03/16/2020 Medicine Progress Note SUBJECTIVE: The patient is doing well with no concerns. He has some flatus in the ileostomy. Good stool output. He is on a full liquid diet. PHYSICAL EXAMINATION: VITAL SIGNS: Temperature is 98, pulse 70, respiratory rate is 18, blood pressure is 128/92, pulse ox 100% on room air. GENERAL: Not in acute distress. Alert and oriented x3. Cooperative on examination. PULMONARY: Clear to auscultation bilaterally. No wheezing, no rales, no rhonchi, no crackles appreciated. CARDIOVASCULAR: Positive S1, S2. No murmurs, rubs, or gallops appreciated. ABDOMEN: Soft, nondistended, and nontender to palpation. Bowel sounds present. MUSCULOSKELETAL: Strength 5/5 throughout. No evidence of any muscle deficits on examination. SKIN: Intact. Warm to touch. Good cap refill. PSYCHIATRIC: Normal affect and mood. EXTREMITIES: No edema. Good range of motion throughout. LABORATORY FINDINGS: Show white count pending, hemoglobin 11, hematocrit 33.6, platelets of 350. Chemistry reviewed and stable. Coronavirus not detected. Microbiology, nothing new. IMAGING STUDIES: None. IMPRESSION: 1. Perforated diverticulitis with underlying peritonitis postop day #6 with ileostomy. 2. Hypernatremia-resolved. 3. Mild protein-calorie malnutrition. PLAN: The patient's diet has been advanced to full liquids. Get a.m. labs. Stop IV fluids. Monitor blood pressure very closely. According to the patient, General Surgery states that he could possibly be potentially discharged tomorrow. I have discussed this with the patient at bedside. He has a PICC line. IV antibiotics have been arranged on Monday of this week through Dr. Lynch's office. Heparin for DVT prophylaxis. Encourage ambulation. MD REEMA Cantu/NIKHIL /[id number]
[2020-03-17] MEDS: CEFEPIME 2 GM/NS 0.9% 100 ML 100 ML IV SCH ×4 (02:20→20:05)
--- NOTE | 2020-03-17 03:15 | Progress Note ---
DATE: 03/16/2020 SUBJECTIVE: Mr. Gale is doing well. There are no new complaints. REVIEW OF SYSTEMS: Otherwise unremarkable. PHYSICAL EXAMINATION: GENERAL: He is currently alert, oriented. VITAL SIGNS: Stable, currently afebrile. HEENT: He is not icteric. NECK: Supple. CHEST: Clear. HEART: S1, S2. ABDOMEN: Soft. Bowel sounds present. EXTREMITIES: No edema. SKIN: No rash. IMPRESSION: Peritonitis, severe, status post ruptured colon. Plan for discharge him on Monday with IV antibiotic and local care. PT/OT. Advance diet as tolerated. Discussed with medical team at length. Discussed with the patient. MD TONYA Murillo/NIKHIL /[id number]
[2020-03-17] MEDS: METRONIDAZOLE 500MG/NS 100ML 100 ML IV SCH ×4 (05:19→23:52)
--- NOTE | 2020-03-17 07:00 | NUR ---
RECEIVED PATIENT AWAKE RESTING IN BED NO S/S OF DISTRESS. BED LOW, WHEELS LOCKED, SIDE RAILS X2. CALL LIGHT IN REACH WILL CONTINUE TO MONITOR PATIENT.
--- NOTE | 2020-03-17 07:02 | NUR ---
Bedside report and walking rounds completed with oncoming nurse. Patient in bed with call light within reach No issues or concerns noted.
[2020-03-17] MEDS: LOSARTAN POTASSIUM 100 MG TAB PO SCH (08:35)
[2020-03-17] MEDS: HEPARIN SOD (PORCINE) 5,000 UNIT/ML VIAL SC SCH ×2 (10:06→20:05)
--- NOTE | 2020-03-17 13:38 | NUR ---
KIMBERLEE WITH WOUND CARE HERE TO EDUCATE PT AND HIS REGARDING COLOSTOMY ORDERS FOR PT TO F/U OP AT [facility] THIS MONDAY ORDER AND FACE SHEET FAXED TO TAISHA AT [facility] FAX: [phone]; CONFIRMATION REC'D SHE WILL REACH OUT TO PT AND SCHEDULE APPT
--- NOTE | 2020-03-17 15:29 | NUR ---
WOUND CARE CONSULT PER DR Joyce CAMARGO FOR OSTOMY TRAINING AND TEACHING WITH PATIENT AND DR DE LA TORRE IS FOR OR PATIENT TO STATE PERISTOMAL SKIN CARE AND SAFTY AND ALSO INDEPENDENTLY CHANGE APPLIANCE TO LEFT LOWER ABDOINAL QUADRANT STOMA PRIOR TO DISHCARGE TOMORROW. PATIENT IS TO FOLLOW UP WITH OUTPATIENT WOUND CARE CENTER MONDAY FOR FOLLOW UP WITH OSTOMOY CARE AND ASSESSMENT OF JORDAN STOMAL AREA. THESE EXTRA MEASURES ARE RELATED TO IRREGULAR STOMAL INCISION AND SHAPE AND SIZE OF STOMA/PERISTOMAL AREA POSES CHALLENGE TO PROPER APPLICANCE FITTING. PATIENT AND AT BEDSIDE PRIMARILY [place] SPEAKING TRANSLATION WAS USED DURING OSTOMY TRAINING AND TEACHING INSTRUCTION WITH REPEAT OF [place] FACTORS AND STATEMENT OF UNDERSTANDING FROM AND PATIENT MADE STOMAL PATTERN MADE AND DEMONSTRATION OF APPLIANCE APPLICATION PERFORMED AND PATIENT MANIPULATED PARTS TO APPLIANCE AND PROPER SEAL AND CLOSURE. PATIENT AND DEMONSTRATED PROPER EMPTYING OF APPLIANCE. ARRANGEMENTS AND PLANS FOR FOLLOW UP VISIT WITH PATIENT AND FOR MORE OSTOMY TEACHING TO BE PERFORMED AT BEDSIDE TOMORROW PRIOR TO DISCHARGE Addendum: 03/17/20 at 1538 by Rodrigo Esquivel RN Amended: Links added.
--- NOTE | 2020-03-17 15:38 | Progress Note ---
DATE: SUBJECTIVE: Rodriguez is doing better. There are no new complaints. He is on process being discharged today. He is being trained to take care of the colostomy. His abdominal wound seems to be okay. REVIEW OF SYSTEMS: Otherwise unremarkable. PHYSICAL EXAMINATION: GENERAL: He is currently alert and oriented. VITAL SIGNS: Stable, currently afebrile. HEENT: He is not icteric. NECK: Supple. CHEST: Clear. HEART: S1 and S2. ABDOMEN: Soft. Bowel sounds present. EXTREMITIES: No edema. IMPRESSION: Peritonitis, status post ruptured colon, status post colostomy. Doing well. Continue as ordered. Discharge planning for tomorrow is noted. Antibiotic is arranged. MD TONYA Murillo/NIKHIL /[id number]
[2020-03-17] MEDS: PANTOPRAZOLE 40 MG 10ML VIAL IV SCH (16:38)
--- NOTE | 2020-03-17 16:47 | NUR ---
CM REC'D ORDERS AND SIGNED SCRIPT FOR THIS PT FOR COLOSTOMY SUPPLIES CALLED [facility] PH: [phone], SPOKE WITH [facility] SHE STATES SUPPLIES WILL BE DELIVERED TO PT'S HOME IN ABOUT 5 DAYS FAXED SCRIPT TO [phone] CONFIRMATION REC'D FAXED ORDERS FOR OSTOMY SUPPLIES TO [phone] CONFIRMATION REC'D GAVE PT NAME AND NUMBER OF COMPANY NURSE WILL SUPPLY PT WITH EXTRA OSTOMY SUPPLIES TO TAKE HOME PLAN FOR DC HOME TOMORROW
--- NOTE | 2020-03-17 19:27 | NUR ---
COMPLETED BEDSIDE SHIFT REPORT AND ROUNDING WITH ONCOMING NIGHT NURSE. PATIENT IN STABLE CONDITION, NO S/S OF DISTRESS NOTED. RESPIRATIONS EVEN AND NON-LABORED. IV SITE ASYMPTOMATIC AND PATENT, TRANSPARENT DRESSING C/D/I. COLOSTOMY NOTED. BED IN LOWEST POSITION AND LOCKED, SIDE RAILS X 2 , NON SKID SOCKS APPLIED. CALL LIGHT WITHIN REACH.
[2020-03-17] MEDS ORDERED: SODIUM CHLORIDE 0.9% 250ML 250 ML ONE (19:53)
[2020-03-18] VITALS: BP 141/81
--- NOTE | 2020-03-18 01:05 | Progress Note ---
DATE: 03/17/2020 Medicine Progress Note SUBJECTIVE: The patient is doing well today with no complaints. No overnight events. He is tolerating diet well. PHYSICAL EXAMINATION: VITAL SIGNS: Temperature 98, pulse 68, respiratory rate is 18, blood pressure 125/87, pulse ox 100% on room air. GENERAL: Not in acute distress. Alert and oriented x3. Cooperative on exam. HEENT: Head; normocephalic, atraumatic. Eyes; pupils are equal, round, and reactive to light bilaterally. Extraocular movements intact bilaterally. Throat; no evidence of erythema or exudates in the posterior pharynx. Has poor dentition. NECK: Supple. Good range of motion. PULMONARY: Clear to auscultation bilaterally. No wheezing, rales, or rhonchi. No crackles appreciated. CARDIOVASCULAR: Positive S1, S2. No murmurs, rubs, or gallops appreciated. ABDOMEN: Soft, nondistended, and nontender to palpation. Bowel sounds present. MUSCULOSKELETAL: Strength is 5/5 throughout. No evidence of any muscle deficits on examination. NEUROLOGICAL: Alert and oriented x3. LABORATORY FINDINGS: CBC, stable. Chemistry, stable. Microbiology, all cultures were negative. IMAGING STUDIES: Nothing new. IMPRESSION: 1. Perforated diverticulitis with underlying peritonitis postop day #7 with ileostomy. 2. Hypernatremia-resolved. 3. Mild protein-calorie malnutrition. PLAN: At this time, the patient is doing very well. He is on a regular diet. IV antibiotics have been arranged at the ID Clinic. He is ready for discharge by General Surgery. As well, he will come tomorrow for endoscopy education. He has a PICC line in place. Plan of care discussed with nursing staff and the patient at bedside. MD REEMA Cantu/NIKHIL /[id number]
[2020-03-18] MEDS: CEFEPIME 2 GM/NS 0.9% 100 ML 100 ML IV SCH ×2 (02:45→09:01)
[2020-03-18 04:00] VITALS: BP 145/89
[2020-03-18] MEDS: METRONIDAZOLE 500MG/NS 100ML 100 ML IV SCH (05:30)
--- NOTE | 2020-03-18 06:56 | NUR ---
Bedside report and walking rounds completed with oncoming nurse. Patient in bed with call light within reach. No issues or concerns noted.
--- NOTE | 2020-03-18 07:00 | NUR ---
RECEIVED BEDSIDE SHIFT REPORT AND ROUNDING WITH OFF GOING NIGHT NURSE. PATIENT IN STABLE CONDITION, NO S/S OF DISTRESS NOTED. RESPIRATIONS EVEN AND NON-LABORED. IV SITE ASYMPTOMATIC AND PATENT, TRANSPARENT DRESSING C/D/I. COLOSTOMY NOTED. BED IN LOWEST POSITION AND LOCKED, SIDE RAILS X 2 , NON SKID SOCKS APPLIED. CALL LIGHT WITHIN REACH.
[2020-03-18 07:56] VITALS: BP 133/78
[2020-03-18 08:00] VITALS: BP 133/78
[2020-03-18] MEDS: HEPARIN SOD (PORCINE) 5,000 UNIT/ML VIAL SC SCH (09:02)
[2020-03-18] MEDS: LOSARTAN POTASSIUM 100 MG TAB PO SCH (09:03)
[2020-03-18] MEDS ORDERED: MEROPENEM 1GM 100 ML IV ONE (11:30)
[2020-03-18 11:48] VITALS: BP 151/94
--- NOTE | 2020-03-18 12:26 | NUR ---
PATIENT DISCHARGED HOME. PATIENT OFF THE UNIT @ 1221 VIA WHEELCHAIR ACCOMPANIED TO THE LOBBY BY PCT. PATIENT IN STABLE CONDITION, NO S/S OF DISTRESS NOTED. NO PAIN VOICED. PICC LINE LEFT IN PLACE DUE TO THE PATIENT GOING TO DR. LEACH'S OFFICE FOR ANTIBIOTIC TREATMENT, PICC LINE SITE ASYMPTOMATIC, AND PATENT, TRANSPARENT DRESSING C/D/I. IV ACCESS TO THE RIGHT AC REMOVED WITH TIP INTACT. ALL PERSONAL ITEMS TAKEN WITH THE PATENT. DISCHARGE TEACHING AND INSTRUCTION GIVEN TO THE PATIENT. PATIENT VERBALIZED UNDERSTANDING. GAVE PATIENT DISCHARGE PAPERWORK ALONG WITH PRESCRIPTIONS.
--- NOTE | 2020-03-18 13:18 | NUR ---
WOUND CARE FOLLOW UP FOR FURTHER COLOSTOMY TEACHING/TRAINING PRIOR TO DISCHARGE AT BEDSIDE WITH PATIENT ASSISTANCE BOTH DEMONSTRATED ABILITY TO EMPTY AND CLEAN APPLIANCE ALSO CUT STOMA PATTERN AND TRANSFERRED TO ANOTHER APPLIANCE PRIOR TO APPLYING IT WELL PATIENT SUPPLIES ORDERED AND ON ROUTE TO HOME PATIENT GIVEN BARRIER WIPES AND BAGS TO TAKE HOME WELL PATIENT TO FOLLOW UP WITH OUTPATIENT WOUND CARE FOR ASSESSMENT OF OSTOMY AND FOLLOW UP TEACHING Monday03/20/2020 Addendum: 03/18/20 at 1330 by Rodrigo Esquivel RN Amended: Links added.
--- NOTE | 2020-03-19 04:51 | Discharge Summary ---
FINAL DISCHARGE DIAGNOSES: 1. Perforated diverticulitis with underlying peritonitis, status post exploratory laparotomy with colon resection and colostomy creation. 2. Sepsis secondary to peritonitis and perforated viscus. 3. Hypernatremia-resolved. 4. Mild protein-calorie malnutrition. CONSULTANTS: ID and General Surgery. VITAL SIGNS: Temperature is 98.4, pulse 67, respiratory rate is 20, blood pressure 151/94, pulse ox 100% on room air. LABORATORY DATA: Labs show white count 10, hemoglobin 11.5, hematocrit is 34, and platelets of 250. Chemistry; sodium 137, potassium 3.6, chloride 108, bicarb 20, anion gap of 12, BUN is 11, creatinine is 0.7, glucose 107, calcium is 8. LFTs within normal range. Albumin 2.2. Lipase level was 16. Troponins were negative. CK 61. Urinalysis was negative. Urine drug screen positive for amphetamine. Coronavirus not detected. MICROBIOLOGY BLOOD: Blood cultures, no growth. Urine cultures, no growth. IMAGING STUDIES: CT abdomen and pelvis, impression; perforated sigmoid diverticulitis with small volume pneumoperitoneum with 8.3 cm air and fluid containing lower mesenteric abscess. Hepatic steatosis, suspect gallbladder sludge. Chest x-ray, enteric tube tip sidewall projects over the expected area of the stomach. HOSPITAL COURSE: This is a 39-year-old male, who came into the ED with severe abdominal pain, found to have a perforated viscus seen on CT imaging findings. CT abdomen and pelvis shows a perforated pneumoperitoneum with an abscess collection, prompting General Surgery and ID consultation. The patient maintained on broad-spectrum IV antibiotics. All his cultures were found to be negative. The patient underwent status post exploratory laparotomy with a colon resection and a colostomy creation. The patient did well postoperatively, maintained on pain control and was n.p.o. initially with an NG tube. The patient progressively improved and maintained on IV antibiotic therapy. His NG tube was removed at some point. He was started on clear liquid diet, advanced to solid foods prior to being discharged. The patient's pain improved. He worked with physical therapy and occupational therapy. PICC line was inserted. He will need 2 weeks of IV antibiotics, which was arranged with Dr. Lynch's office. The patient was back to normal baseline. The patient had colostomy education by General Surgery as well as the Ostomy team. The patient was doing well, was cleared for discharge by both General Surgery and ID. The patient will follow up tomorrow in ID clinic to get IV antibiotics, which has been arranged. He will follow up with General Surgery in 1 week time. On the day of discharge, vital signs were stable, labs reviewed and stable. The patient was seen evaluated and examined thoroughly on the day of discharge with no other complaints. The patient verbalized understanding and agrees to plan of care to follow up as an outpatient with the primary care physician in 1 week and ID tomorrow, 03/19/2020, for IV antibiotic therapy and follow up with General Surgery in 1 week time. MEDICATIONS: See med reconciliation form. DISPOSITION: Home. CONDITION: Stable. DIET: Heart healthy. In the event of any worsening symptoms, the patient was advised to come back to the ED for further evaluation. Discharge summary took greater than 35 minutes. MD REEMA Cantu/MODTrina /[id number]
== END 2020-03-18 12:24 | disposition home or self-care (01) | DRG 853 ==
LOC: ER 19:28 → ERHOLD 22:24 → IMCU 03-09 00:31 → MED/SURG3 03-11 14:17 → MED/SURG 03-12 15:45
PROVIDERS: ADMIT Internal Medicine; ATTEND Internal Medicine
PROC: 0DTN4ZZ Resection of Sigmoid Colon, Percutaneous Endoscopic Approach (ICD-10-PCS; principal; 2020-03-08)
PROC: 0D1N4Z4 Bypass Sigmoid Colon to Cutaneous, Percutaneous Endoscopic Approach (ICD-10-PCS; 2020-03-08)
PROC: 0DTN0ZZ Resection of Sigmoid Colon, Open Approach (ICD-10-PCS; 2020-03-08)
PROC: 0D1 Gastrointestinal System, Bypass (ICD-10-PCS; 2020-03-08)
PROC: 02HV33Z Insertion of Infusion Device into Superior Vena Cava, Percutaneous Approach (ICD-10-PCS; 2020-03-13)
DX: A41.9 Sepsis, unspecified organism (principal); K65.8 Other peritonitis; K57.40 Diverticulitis of both small and large intestine with perforation and abscess without bleeding; E87.0 Hyperosmolality and hypernatremia; E44.0 Moderate protein-calorie malnutrition; Z68.33 Body mass index [BMI] 33.0-33.9, adult; Z11.59 Encounter for screening for other viral diseases; K76.0 Fatty (change of) liver, not elsewhere classified
CPT/HCPCS: 36415; 36569; 71045; 74177; 80048; 80053; 80307; 81001; 82550; 82553; 83605; 83690; 83735; 84484; 85025; 87040; 87086; 88307; 88329; 93005; 96361; 97139; 99251; 99284; J0696; J1100; J1644; J1885; J1956; J2001; J2250; J2270; J2405; J2543; J2710; J3010; J3480; J7030; J7050; J7070; Q9967; U0002

== ENCOUNTER → 2020-03-20 | Outpatient (CLI) | payer OTHER ==
[~2020-03-20] MED LIST: NEOSTIGMINE 1 MG/ML 10ML VIAL ONE
== END ==
LOC: WCC 11:23
PROVIDERS: ATTEND Internal Medicine
DX: K57.40 Diverticulitis of both small and large intestine with perforation and abscess without bleeding (principal); K65.8 Other peritonitis

== ENCOUNTER → 2020-05-29 | Outpatient (CLI) | payer OTHER ==
[~2020-05-29] MED LIST changes: +DIATRIZOATE MEGL/DIATRIZOA SOD 120 ML BTL PO ONE; +LOSARTAN POTASS25 MG PO; -NEOSTIGMINE 1 MG/ML 10ML VIAL ONE
== END ==
LOC: DX 10:05
PROVIDERS: ATTEND Surgery
DX: K57.92 Diverticulitis of intestine, part unspecified, without perforation or abscess without bleeding (principal)
CPT/HCPCS: 74280; Q9963